=== PATIENT | male | born 1935 | race Caucasian/White ===

== ENCOUNTER 2016-06-04 19:33 | Inpatient (IN) ==
[2016-06-04] MEDS ORDERED: IPRATROPIUM/ALBUTEROL 3 ML AMPUL.NEB NEB ONE (19:39)
[2016-06-04] MEDS ORDERED: 0.9 % SODIUM CHLORIDE 1,000 ML IV ONE ×2 (19:40→21:00)
[2016-06-04] MEDS ORDERED: NALOXONE HCL 0.4 MG/ML VIAL IV ONE (19:49)
--- NOTE | 2016-06-04 20:06 | Emergency Department Note ---
[id number] 4d Shortness of breath Time Seen by Provider: 06/04/16 19:37 Source: family, EMS Mode of arrival: EMS Limitations: no limitations - History of Present Illness 80-year-old male with a history of shortness of breath and decreased level consciousness this evening. Was evaluated by his primary care provider yesterday, had a chest x-ray and was diagnosed with pneumonia. He's been treated with Zithromax and IM Rocephin. 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 They did give some Narcan, which helped, but does have a nonrebreather mask and the sats are running at 92-94%. - Related Data Home Medications Medication Instructions Recorded Confirmed Albuterol Sulfate 2.5 mg IH Q4HP PRN 09/11/15 06/05/16 Bisacodyl [Dulcolax] 10 mg MD PRN PRN 09/11/15 06/05/16 Calcium Carbonate [Calcium] 500 mg PO DAILY 09/11/15 06/05/16 Carvedilol [Coreg] 3.125 mg PO BID 09/11/15 06/05/16 Fluticasone Propionate [Flovent 2 puff IH Q12 09/11/15 06/05/16 Diskus] Ipratropium/Albuterol [Duoneb] 3 ml NEB Q6H 09/11/15 06/05/16 Magnesium Hydroxide [Milk of 30 ml PO PRN PRN 09/11/15 06/05/16 Magnesia] Na Phos,M-B/Na Phos,Di-Ba [Fleet 230 ml RC PRN PRN 09/11/15 06/05/16 Enema Extra] Nicotine [Nicoderm] 21 mg TOPICAL DAILY 09/11/15 06/05/16 Omeprazole [PriLOSEC] 20 mg PO BID 09/11/15 06/05/16 Polyethylene Glycol 3350 [Miralax] 17 gm PO BID 09/11/15 06/05/16 Sennosides [Senna] 8.6 mg PO BID 09/11/15 06/05/16 Tuberculin,Purif.prot.deriv. 5 tub ID ONCE 09/11/15 06/05/16 [Tubersol] traMADol [Ultram] 1 tab PO Q4-6HP PRN 09/11/15 06/05/16 Artificial Tears 2 gtt BOTH EYES Q4HP PRN 06/05/16 06/05/16 Cholecalciferol (Vitamin D3) 2,000 unit PO HS 06/05/16 06/05/16 [Vitamin D] Melatonin 5 mg PO PRN PRN 06/05/16 06/05/16 Multivit,Th Iron,Other Min 1 tab PO DAILY 06/05/16 06/05/16 [Thera-M] Potassium Chloride [Klor-Con 10] 10 meq PO DAILY 06/05/16 06/05/16 Tamsulosin HCl 0.4 mg PO DAILY 06/05/16 06/05/16 Thera-Gesic Plus Creme 1 unit DAILY 06/05/16 06/05/16 Torsemide [Demadex] 20 mg PO DAILY 06/05/16 06/05/16 Warfarin [Coumadin] 6 mg PO DAILY 06/05/16 06/05/16 morphine 0.5 ml PO Q2HP PRN 06/05/16 06/05/16 Allergies Allergy/AdvReac Type Severity Reaction Status Date / Time Penicillins Allergy Unknown Verified 09/11/15 18:08 shellfish derived Allergy Unknown Verified 09/11/15 18:08 Review of Systems All systems ED: reviewed and negative except as stated. Constitutional: Reports: fever Eyes: Denies: eye pain ENT ED: Denies: ear pain Cardiovascular: Denies: chest pain Respiratory: Reports: cough, dyspnea Gastrointestinal: Denies: abdominal pain Genitourinary: Denies: urgency, dysuria Musculoskeletal: Denies: back pain Integumentary: Denies: rash Neurological: Denies: headache Psychiatric: Denies: anxiety Endocrine: Denies: fatigue Hematological/Lymphatic: Denies: easy bleeding Past Medical History - Past Medical History Medical history: Reports: COPD, GERD, hypertension, other (ankylosing spondylitis) - Social History smoking status: Former smoker (heavy) Alcohol use: Reports: None Drug use: Reports: none Physical Exam - General Limitations: no limitations General appearance: alert - Head Head exam: atraumatic - ENT ENT exam: normal oropharynx, mucous membranes moist - Neck Neck exam: Present: full ROM, trachea midline - Chest Chest inspection: Present: symmetric chest wall rise - Respiratory Respiratory exam: Absent: stridor - Cardiovascular Cardiovascular exam: Present: regular rate, normal rhythm - Abdominal Exam Abdominal exam: Present: soft. Absent: distention, tenderness - exam: Present: normal inspection. Absent: testicular tenderness - Extremities Exam Extremities exam: Present: normal inspection. Absent: full ROM - Back Exam Back exam: Present: normal inspection. Absent: full ROM, tenderness - Skin Skin exam: Present: warm, dry Course Vital Signs Temperature 100.6 F H 06/04/16 19:33 Pulse Rate 114 H 06/04/16 19:33 Respiratory Rate 16 06/04/16 19:33 Blood Pressure 154/79 06/04/16 19:33 Pulse Oximetry (%) 90 06/04/16 19:33 Temperature 98.3 F 06/10/16 20:00 Pulse Rate 88 06/10/16 18:02 Respiratory Rate 24 06/10/16 22:00 Blood Pressure 117/73 06/10/16 22:00 Pulse Oximetry (%) 92 06/10/16 22:00 Shortness of Breath/Dyspnea - Lab Data Result diagrams: 06/10/16 03:50 06/10/16 03:50 Lab Results 06/04/16 06/04/16 06/04/16 Range/Units 00:00 00:00 00:00 WBC (4.5-11.0) K/mcL RBC (4.50-5.90) M/mcL Hgb (13.5-16.5) g/dL Hct (41.0-55.0) % MCV (80.0-100.0) fL MCH (26.0-34.0) pg MCHC (31.0-36.0) g/dL RDW (11.5-14.5) % Plt Count (140-440) K/mcL MPV (7.4-10.4) fL Total Counted Seg Neutrophils % (38-78) % Band Neutrophils % (0-10) % Lymphocytes % (15-49) % Monocytes % (Manual) (1-9) % Metamyelocytes % (0-0) % Reactive Lymphocytes (0-2) % Platelet Estimate (NORMAL) RBC Morphology (NORMAL) PT 28.0 H (11.9-14.5) sec INR 2.5 H (0.9-1.1) D-Dimer < 0.27 (0.00-0.40) ug/ml VBG Lactic Acid (0.5-2.2) mmol/L Sodium (133-145) mmol/L Potassium (3.3-5.1) mmol/L Chloride (96-108) mmol/L Carbon Dioxide (22-30) mmol/L Anion Gap (8-16) BUN (8-23) mg/dl Creatinine (0.7-1.2) mg/dl GFR Calculation Glucose (70-105) mg/dL Calcium (8.6-10.4) mg/dl Total Bilirubin (0.0-1.0) mg/dL AST (0-37) U/l ALT (0-40) U/l Alkaline Phosphatase (39-117) U/L Troponin T < 0.01 (0-0.03) ng/ml NT-Pro-B Natriuret Pep 3461.0 H (0-450) pg/ml Total Protein (5.9-8.4) gm/dL Albumin (3.2-5.2) gm/dL Globulin (2.2-3.7) gm/dL Albumin/Globulin Ratio (1.0-2.3) Urine Color Urine Appearance Urine pH (5.0-9.0) Ur Specific Clayton (1.000-1.035) Urine Protein (NEG) mg/dL Urine Glucose (UA) (NEG) mg/dL Urine Ketones (NEG) mg/dL Urine Occult Blood (<0.03) mg/dL Urine Nitrate (NEG) Urine Bilirubin (NEG) mg/dL Urine Urobilinogen (NEG) mg/dL Ur Leukocyte Esterase (NEG) /uL Urine RBC (0-1) /hpf Urine WBC (0-4) /hpf Ur Squamous Epith Cells (0-4) /hpf Ur Transition Epith Cell (0-2) /hpf Amorphous Crystals (0) /hpf Urine Bacteria (0) /hpf Hyaline Casts (0-2) /lpf Urine Mucus (0) /hpf Ur Culture Indicated? 06/04/16 06/04/16 06/04/16 Range/Units 20:00 20:00 20:00 WBC 9.5 (4.5-11.0) K/mcL RBC 4.90 (4.50-5.90) M/mcL Hgb 14.9 (13.5-16.5) g/dL Hct 46.8 (41.0-55.0) % MCV 95.5 (80.0-100.0) fL MCH 30.5 (26.0-34.0) pg MCHC 31.9 (31.0-36.0) g/dL RDW 13.8 (11.5-14.5) % Plt Count 212 (140-440) K/mcL MPV 7.6 (7.4-10.4) fL Total Counted 100 Seg Neutrophils % 74 (38-78) % Band Neutrophils % 6 (0-10) % Lymphocytes % 5 L (15-49) % Monocytes % (Manual) 12 H (1-9) % Metamyelocytes % 1 H (0-0) % Reactive Lymphocytes 2 (0-2) % Platelet Estimate Normal (NORMAL) RBC Morphology Normal (NORMAL) PT (11.9-14.5) sec INR (0.9-1.1) D-Dimer (0.00-0.40) ug/ml VBG Lactic Acid 1.0 (0.5-2.2) mmol/L Sodium 136 (133-145) mmol/L Potassium 4.4 (3.3-5.1) mmol/L Chloride 89 L (96-108) mmol/L Carbon Dioxide 35 H (22-30) mmol/L Anion Gap 12.0 (8-16) BUN 19 (8-23) mg/dl Creatinine 1.0 (0.7-1.2) mg/dl GFR Calculation 71 Glucose 129 H (70-105) mg/dL Calcium 8.6 (8.6-10.4) mg/dl Total Bilirubin 0.3 (0.0-1.0) mg/dL AST 21 (0-37) U/l ALT 18 (0-40) U/l Alkaline Phosphatase 106 (39-117) U/L Troponin T (0-0.03) ng/ml NT-Pro-B Natriuret Pep (0-450) pg/ml Total Protein 7.6 (5.9-8.4) gm/dL Albumin 4.1 (3.2-5.2) gm/dL Globulin 3.5 (2.2-3.7) gm/dL Albumin/Globulin Ratio 1.2 (1.0-2.3) Urine Color Urine Appearance Urine pH (5.0-9.0) Ur Specific Clayton (1.000-1.035) Urine Protein (NEG) mg/dL Urine Glucose (UA) (NEG) mg/dL Urine Ketones (NEG) mg/dL Urine Occult Blood (<0.03) mg/dL Urine Nitrate (NEG) Urine Bilirubin (NEG) mg/dL Urine Urobilinogen (NEG) mg/dL Ur Leukocyte Esterase (NEG) /uL Urine RBC (0-1) /hpf Urine WBC (0-4) /hpf Ur Squamous Epith Cells (0-4) /hpf Ur Transition Epith Cell (0-2) /hpf Amorphous Crystals (0) /hpf Urine Bacteria (0) /hpf Hyaline Casts (0-2) /lpf Urine Mucus (0) /hpf Ur Culture Indicated? 06/04/16 Range/Units 21:17 WBC (4.5-11.0) K/mcL RBC (4.50-5.90) M/mcL Hgb (13.5-16.5) g/dL Hct (41.0-55.0) % MCV (80.0-100.0) fL MCH (26.0-34.0) pg MCHC (31.0-36.0) g/dL RDW (11.5-14.5) % Plt Count (140-440) K/mcL MPV (7.4-10.4) fL Total Counted Seg Neutrophils % (38-78) % Band Neutrophils % (0-10) % Lymphocytes % (15-49) % Monocytes % (Manual) (1-9) % Metamyelocytes % (0-0) % Reactive Lymphocytes (0-2) % Platelet Estimate (NORMAL) RBC Morphology (NORMAL) PT (11.9-14.5) sec INR (0.9-1.1) D-Dimer (0.00-0.40) ug/ml VBG Lactic Acid (0.5-2.2) mmol/L Sodium (133-145) mmol/L Potassium (3.3-5.1) mmol/L Chloride (96-108) mmol/L Carbon Dioxide (22-30) mmol/L Anion Gap (8-16) BUN (8-23) mg/dl Creatinine (0.7-1.2) mg/dl GFR Calculation Glucose (70-105) mg/dL Calcium (8.6-10.4) mg/dl Total Bilirubin (0.0-1.0) mg/dL AST (0-37) U/l ALT (0-40) U/l Alkaline Phosphatase (39-117) U/L Troponin T (0-0.03) ng/ml NT-Pro-B Natriuret Pep (0-450) pg/ml Total Protein (5.9-8.4) gm/dL Albumin (3.2-5.2) gm/dL Globulin (2.2-3.7) gm/dL Albumin/Globulin Ratio (1.0-2.3) Urine Color Straw Urine Appearance Hazy Urine pH 5.0 (5.0-9.0) Ur Specific [place] 1.009 (1.000-1.035) Urine Protein Neg (NEG) mg/dL Urine Glucose (UA) Negative (NEG) mg/dL Urine Ketones Neg (NEG) mg/dL Urine Occult Blood 0.03 A (<0.03) mg/dL Urine Nitrate Neg (NEG) Urine Bilirubin Neg (NEG) mg/dL Urine Urobilinogen Neg (NEG) mg/dL Ur Leukocyte Esterase Neg (NEG) /uL Urine RBC 1 (0-1) /hpf Urine WBC 4 (0-4) /hpf Ur Squamous Epith Cells < 1 (0-4) /hpf Ur Transition Epith Cell < 1 (0-2) /hpf Amorphous Crystals Few A (0) /hpf Urine Bacteria 0 (0) /hpf Hyaline Casts 17 H (0-2) /lpf Urine Mucus Few (0) /hpf Ur Culture Indicated? No Disposition Clinical Impression: Pneumonia Clinical Impression: (Ruled Out): Pleural effusion Disposition: Xfer As Inpt ([facility])
[2016-06-04] MEDS ORDERED: LEVOFLOXACIN 500 MG/100 ML BAG IV ONE (20:09)
[2016-06-04] MEDS ORDERED: cefTRIAXone 1 GM in DEXTROSE 5% IN WATER 50 ML IV ONE (20:09)
[2016-06-04] MEDS ORDERED: cefTRIAXone 1 GM VIAL ONE (20:43)
[2016-06-04 20:51] LABS: Mean Cell Volume 95.5 fL (80.0-100.0); Mean Corpuscular HGB Conc 31.9 g/dL (31.0-36.0); Mean Corpuscular Hemoglobin 30.5 pg (26.0-34.0); Platelet Count 212 K/mcL (140-440); Red Cell Distribution Width 13.8 % (11.5-14.5)
[2016-06-04 21:07] LABS: ALT/SGPT 18 U/l (0-40); Albumin 4.1 gm/dL (3.2-5.2); Albumin/Globulin Ratio 1.2 (1.0-2.3); Alkaline Phosphatase 106 U/L (39-117); Blood Urea Nitrogen 19 mg/dl (8-23)
[2016-06-04 21:15] LABS: Band Neutrophils % 6 % (0-10); Lymphocytes % 5 % (15-49); Metamyelocytes % 1 % (0-0); Monocytes % (Manual) 12 % (1-9); Platelet Estimate NORMAL (NORMAL); RBC Morphology NORMAL (NORMAL); Segmented Neutrophils % 74 % (38-78)
[2016-06-04 22:55] LABS: Appearance,Urine HAZY; Bacteria,Urine 0 /hpf (0); Bilirubin,Urine NEG (NEG); Color,Urine STRAW; Glucose,Urine (UA) NEGATIVE (NEG); Leukocyte Esterase,Urine NEG /uL (NEG); Mucus,Urine FEW /hpf (0); Nitrate,Urine NEG (NEG); Protein,Urine NEG (NEG); Specific Gravity,Urine 1.009 (1.000-1.035); Urine Amorphous Crystals FEW /hpf (0); Urine Blood 0.03 mg/dL (<0.03); Urine Hyaline Cast 17 /lpf (0-2); Urine RBC 1 /hpf (0-1); Urine Squamous Epithelial Cell < 1 /hpf (0-4); Urine Transitional Epi Cells < 1 /hpf (0-2); Urine WBC 4 /hpf (0-4); Urobilinogen,Urine NEG (NEG)
--- NOTE | 2016-06-04 23:11 | Internal Med History&Physical ---
Medical - H&P: HPI Patient information: Note initiated : 06/04/16 at 11:11 pm Service Date, if different from initiated Date: [] Patient: Shameka Sy 80 y/o M admitted on for Shortness of breath. Chief Complaint: [] History of present illness: Mr. Sy is a 80 year [facility] male [facility] the [place] [facility] today. He apparently developed rather sudden increase in shortness of breath yesterday morning, and had a chest x-ray suggestive of left lower lobe pneumonia. It looks like he was treated with azithromycin and Rocephin. However according to his sister, he continued to get more short of breath over the course of the day. He was sent to the emergency room for further evaluation. In the ER he initially had an O2 saturation of 90% on 10 L nasal cannula, and is now requiring about15 L nonrebreather mask to keep his saturations above 92%. His sister is here with him, and so she is his only family. She is aware that he had shortness of breath yesterday and believes he had fever and chills as well as productive cough. She does not believe that he has had recent headaches or dizziness, new eye or Or ear symptoms, sore throat, chest pain or palpitations, abdominal pain, nausea vomiting or diarrhea. She reports she does have chronicconstipation. She is not aware of any bladder complaints. past medical history: (we have not yet received any records from the [place] and history is mostly from the sister.) COPD, with respiratory failure and ventilator management last August. 58 years of tobacco abuse, having quit last year Chronic constipation History of atrial fibrillation Possible history of congestive heart failure medications: appear to include: Tramadol 1 tab every 4 hours when necessary [place] 18 g daily MiraLAX 17 g twice a day Prilosec 20 mg twice a day Fleets enema when necessary we'll continue to when necessary Duo nebs every 6 hours Flovent discus 2 puffs every 12 hours Coreg 3.125 mg twice a day Calcium 500 mg daily Bisacodyl 10 mg when necessary Albuterol sulfate 2 puffs every 4 hours when necessary or nebulizer when necessary Rocephin was started yesterday Azithromycin was started yesterday allergies: Include penicillin and shellfish Family history: The patient's sister believes there is a family history of coronary disease. She is unaware of any family history of cancers, stroke, diabetes. Social history: The patient currently lives at the [place] [facility]. He smoked for approximately 58 years, and just quit last year. He does not use alcohol or drugs. He does not have a or children. Medical - H&P: Meds Home Medications Medication Instructions Recorded Confirmed Type Albuterol Sulfate 2.5 mg IH Q4HP PRN 09/11/15 06/05/16 History Bisacodyl [Dulcolax] 10 mg ME PRN PRN 09/11/15 06/05/16 History Calcium Carbonate [Calcium] 500 mg PO DAILY 09/11/15 06/05/16 History Carvedilol [Coreg] 3.125 mg PO BID 09/11/15 06/05/16 History Fluticasone Propionate [Flovent 2 puff IH Q12 09/11/15 06/05/16 History Diskus] Ipratropium/Albuterol [Duoneb] 3 ml NEB Q6H 09/11/15 06/05/16 History Magnesium Hydroxide [Milk of 30 ml PO PRN PRN 09/11/15 06/05/16 History Magnesia] Na Phos,M-B/Na Phos,Di-Ba [Fleet 230 ml RC PRN PRN 09/11/15 06/05/16 History Enema Extra] Nicotine [Nicoderm] 21 mg TOPICAL DAILY 09/11/15 06/05/16 History Omeprazole [PriLOSEC] 20 mg PO BID 09/11/15 06/05/16 History Polyethylene Glycol 3350 [Miralax] 17 gm PO BID 09/11/15 06/05/16 History Sennosides [Senna] 8.6 mg PO BID 09/11/15 06/05/16 History Tuberculin,Purif.prot.deriv. 5 tub ID ONCE 09/11/15 06/05/16 History [Tubersol] traMADol [Ultram] 1 tab PO Q4-6HP PRN 09/11/15 06/05/16 History Artificial Tears 2 gtt BOTH EYES Q4HP PRN 06/05/16 06/05/16 History Cholecalciferol (Vitamin D3) 2,000 unit PO HS 06/05/16 06/05/16 History [Vitamin D] Melatonin 5 mg PO PRN PRN 06/05/16 06/05/16 History Multivit,Th Iron,Other Min 1 tab PO DAILY 06/05/16 06/05/16 History [Thera-M] Potassium Chloride [Klor-Con 10] 10 meq PO DAILY 06/05/16 06/05/16 History Tamsulosin HCl 0.4 mg PO DAILY 06/05/16 06/05/16 History Thera-Gesic Plus Creme 1 unit DAILY 06/05/16 06/05/16 History Torsemide [Demadex] 20 mg PO DAILY 06/05/16 06/05/16 History Warfarin [Coumadin] 6 mg PO DAILY 06/05/16 06/05/16 History morphine 0.5 ml PO Q2HP PRN 06/05/16 06/05/16 History Allergies Allergy/AdvReac Type Severity Reaction Status Date / Time Penicillins Allergy Unknown Verified 09/11/15 18:08 shellfish derived Allergy Unknown Verified 09/11/15 18:08 Medical - H&P: Exam - Constitutional Vitals: Temp Pulse Resp BP Pulse Ox 100.6 F H 125 H 26 H 111/63 94 06/04/16 19:33 06/04/16 22:07 06/04/16 22:00 06/04/16 22:07 06/04/16 22:07 Exam: on exam, the patient is quite obtunded, does not respond to verbal or physical stimulation. The ER M.D. tells me that the patient was somewhat awake on arrival, and seemed more alert after receiving IV Narcan but then became somnolent again. Head: Normocephalic, atraumatic. Ears:TMs and canals are clear. Eyes: The patient does not open his eyeson command. Pupils are about 2 mm and mostly nonreactive. Conjunctiva appear normal. Pharynx; Appears quite dry posterior pharynx is not well seen. neck: Seems somewhatstiff, but the patient is generally unresponsive. There is no obvious JVD, lymphadenopathy, thyromegaly, bruits. Cardiac exam: Shows irregularly irregular rhythm, with normal S1 and S2. No murmurs, rubs, gallops are noted. Lungs: Patient is unable cooperate well with lung exam, but breath sounds are fairly decreased throughout, with scattered crackles at the bases. abdomen is soft , with no signs of rigidity or guarding. No signs or active. Extremities: Feet are cool to the touch, and slightly mottled. There is no significant edema. Neurologic: The patient is quite unresponsive. The ER M.D. he reports he was more responsive earlier after being given Narcan.his sister reports he was fully responsiveyesterday. Medical - H&P: Reslt - Labs CBC & Chem 7: 06/05/16 04:05 06/05/16 04:05 Labs: Short CBC 06/04/16 Range/Units 20:00 WBC 9.5 (4.5-11.0) K/mcL Hgb 14.9 (13.5-16.5) g/dL Hct 46.8 (41.0-55.0) % Plt Count 212 (140-440) K/mcL BMP 06/04/16 20:00 Sodium 136 Potassium 4.4 Chloride 89 L Carbon Dioxide 35 H BUN 19 Creatinine 1.0 Glucose 129 H Calcium 8.6 Liver Function 06/04/16 Range/Units 20:00 Total Bilirubin 0.3 (0.0-1.0) mg/dL AST 21 (0-37) U/l ALT 18 (0-40) U/l Alkaline Phosphatase 106 (39-117) U/L Albumin 4.1 (3.2-5.2) gm/dL Urine 06/04/16 Range/Units 21:17 Urine Color Straw Urine Appearance Hazy Urine pH 5.0 (5.0-9.0) Ur Specific [place] 1.009 (1.000-1.035) Urine Protein Neg (NEG) mg/dL Urine Glucose (UA) Negative (NEG) mg/dL lactic acid is normal at 1.0 chest x-ray has no formal reading yet, but to my eye shows bilateral Chhaya-Hilar infiltrates. urinalysis shows a few hyaline casts, but is otherwise benign Medical - H&P: A/P (1) Pneumonia Current visit: Yes Status: Acute (2) Urine retention Current visit: Yes Status: Acute (3) Atrial fibrillation Current visit: Yes Status: Acute (4) Anticoagulant long-term use Current visit: Yes Status: Acute (5) COPD (chronic obstructive pulmonary disease) Current visit: Yes Status: Acute (6) History of tobacco abuse Current visit: Yes Status: Acute (7) Constipation Current visit: Yes Status: Acute (8) Hyperlipidemia Current visit: Yes Status: Acute - Narrative A/P Narrative: #1. Pulmonary. Patient presents with acute respiratory failure, likely due to left lower lobe pneumonia. However, he really does not have much in the label white blood cell count. He did have a low-grade fever on arrival. this is superimposed on probably significant COPD, for which really have no records at this time. He was intubated for a prolonged period last August. -Admit to ICU for close monitoring -Cover for community-acquired pneumonia withIV Rocephin and Zithromax. If he does not respondquickly consider adding vancomycin for possible healthcare associated pneumonia. -chek d-dimer, BNP, troponin, to rule out other causes. -IV fluids, IV steroids, bronchodilators, oxygen, pulmonary toilet. --check ABG His sister does not think he would want to go on the ventilator again, but would accept BiPAP if needed. #2. Cardiac. -Patient appears to have a history of atrial fibrillation, and is maintained on Coumadin. -chek PT/INR daily and adjust as needed. #3. History of tobacco abuse. Patient quit last year. #4. CODE STATUS: The patient's sister has his POA, and she is requesting a status, although she says they never formally discuss this or put it in writing. #5. DVT prophylaxis: Continue Coumadin. Add SCDs. #6. GI. -Reported chronic constipation. Continue bowel movements. addendum: After patient arrived in the ICU did some further testing. His blood gas came back showing severe respiratory acidosis, severe hypercarbia with significant base excess. We initially tried decreasingFiO2 to see if that would drop the CO2, but follow-up gas did not look much better. The patient was then started on BiPAP, which she seems to be tolerating. This visit took approximately 75 minutes so far, to review the patient's case with the ER Daja, obtain history from the patient's sister, examined the patient , writing orders
[2016-06-04] MEDS ORDERED: ACETAMINOPHEN 325 MG TABLET PO PRN (23:46)
[2016-06-04] MEDS ORDERED: cefTRIAXone 1 GM in DEXTROSE 5% IN WATER 50 ML IV SCH (23:46)
[2016-06-04] MEDS ORDERED: MAGNESIUM HYDROXIDE 30 ML ORAL.SUSP PO PRN (23:46)
[2016-06-04] MEDS ORDERED: ONDANSETRON 4 MG/2 ML VIAL IV PRN (23:46)
[2016-06-04] MEDS ORDERED: NALOXONE HCL 0.4 MG/ML VIAL IV PRN (23:46)
[2016-06-04] MEDS ORDERED: POTASSIUM CHLORIDE 20 MEQ in DEXTROSE 5%-1/2NS 1,000 ML IV SCH (23:46)
[2016-06-04] MEDS ORDERED: LORazepam 2 MG/ML VIAL IV PRN (23:46)
[2016-06-04] MEDS ORDERED: ALBUTEROL SULFATE 2.5 MG/3 ML NEBULIZER NEB PRN (23:46)
[2016-06-05] MEDS: AZITHROMYCIN 500 MG in DEXTROSE 5% IN WATER 250 ML IV SCH ×2 (00:03→15:23)
[2016-06-05 01:19] LABS: D-Dimer < 0.27 ug/ml (0.00-0.40)
[2016-06-05] MEDS: IPRATROPIUM/ALBUTEROL 3 ML AMPUL.NEB NEB SCH ×4 (03:37→19:03)
[2016-06-05] MEDS: 0.9 % SODIUM CHLORIDE 10 ML SYRINGE IV SCH ×3 (05:33→20:49)
--- NOTE | 2016-06-05 06:16 | XRay Report ---
CLINICAL INFORMATION: Hypoxia TECHNIQUE: AP semiupright portable chest x-ray COMPARISON: None. FINDINGS: Probable pulmonary congestion. No definite pulmonary edema. No focal infiltrate. No pulmonary parenchymal mass. Upright PA and lateral chest x-ray would the helpful when clinically appropriate. Mild cardiomegaly. IMPRESSION: 1. Mild cardiomegaly. Probable pulmonary congestion without pulmonary edema. 2. No focal infiltrate. Interpreted and Authenticated by: Jese Badillo 06/05/16
[2016-06-05 06:54] LABS: Basophils # (Auto) 0 K/mcL (0.0-0.3); Basophils % (Auto) 0.1 % (0.0-2.0); Eosinophils # (Auto) 0 K/mcL (0.0-0.7); Eosinophils % (Auto) 0 % (0.0-7.0); Granulocytes % (Auto) 80.6 % (38.0-78.0); Lymphocytes # (Auto) 0.6 K/mcL (1.5-4.8); Lymphocytes % (Auto) 5.6 % (15.5-49.0); Mean Cell Volume 96.1 fL (80.0-100.0); Mean Corpuscular Hemoglobin 30.7 pg (26.0-34.0); Monocytes # (Auto) 1.4 K/mcL (0.1-0.9); Monocytes % (Auto) 13.7 % (1.0-9.0); Platelet Count 179 K/mcL (140-440); Red Cell Distribution Width 13.8 % (11.5-14.5)
[2016-06-05] MEDS ORDERED: DEXTROSE 5%-1/2NS W/20MEQ KCL 1,000 ML IV SCH (07:00)
[2016-06-05 07:59] LABS: ALT/SGPT 16 U/l (0-40); Albumin 3.9 gm/dL (3.2-5.2); Albumin/Globulin Ratio 1.6 (1.0-2.3); Alkaline Phosphatase 93 U/L (39-117); Bilirubin,Direct < 0.2 mg/dL (0.0-0.3); Blood Urea Nitrogen 20 mg/dl (8-23); Gamma Glutamyl Transpeptidase 19 U/L (8-61); Magnesium 2.2 mg/dL (1.6-2.5); Uric Acid 7.5 mg/dL (2.5-8.0)
[2016-06-05] MEDS ORDERED: ENOXAPARIN 40 MG/0.4 ML SYRINGE SQ SCH (09:00)
[2016-06-05] MEDS: PANTOPRAZOLE 40 MG VIAL IV SCH (09:20)
--- NOTE | 2016-06-05 11:10 | Internal Med Progress Note ---
Medical - PN: Subj Patient information: Note initiated : 06/05/16 at 11:10 am Service Date, if different from initiated Date: [] Patient: Shameka Sy 80 y/o M admitted on 06/04/16 for Shortness of breath. Chief Complaint: [] Interval history: June 04, 2016: History of present illness: Mr. Sy is a 80 [facility] today. He apparently developed rather sudden increase in shortness of breath yesterday morning, and had a chest x-ray suggestive of left lower lobe pneumonia. It looks like he was treated with azithromycin and Rocephin. However according to his sister, he continued to get more short of breath over the course of the day. He was sent to the emergency room for further evaluation. In the ER he initially had an O2 saturation of 90% on 10 L nasal cannula, and is now requiring about15 L nonrebreather mask to keep his saturations above 92%. His sister is here with him, and so she is his only family. She is aware that he had shortness of breath yesterday and believes he had fever and chills as well as productive cough. She does not believe that he has had recent headaches or dizziness, new eye or Or ear symptoms, sore throat, chest pain or palpitations, abdominal pain, nausea vomiting or diarrhea. She reports she does have chronicconstipation. She is not aware of any bladder complaints. June 05, 2016: the patient did remain on BiPAP for the rest of the night and morning. ABG definitely looks better, although not normal, on the BiPAP. The patient is a little more responsive this morning. He does open his eyes,and appears to say yes and no in response to simple questions. his sister is here again this morning,and is rethinking her brother's CODE STATUS. He never did put anything in writing, so she is now thinking that is going on a ventilator for a few days might get him over whatever respiratory failure he's having at the moment then she would consider giving us the okay to do that. She reiterates that he and she never had a steven discussion about this issue. he patient seems indicated that he is not having any pain. He seems to deny chest pain or abdominal pain, and seems to understand that the BiPAP mask is helping him to breathe. We did receive a few more records from the [place] this morning: past medical history: COPD, with respiratory failure and ventilator management last August. previously oxygen dependent, but no longer. 58 years of tobacco abuse, having quit last year Chronic constipation History of atrial fibrillation Hypertension Possible history of congestive heart failure Hyperlipidemia History of upper GI bleed complicated by warfarin therapy, cute myocardial syndrome, and ARDS, August 2015. - Constitutional Vitals: Vital Signs Temp Pulse Resp BP Pulse Ox 98.0 F 103 H 16 122/75 91 06/05/16 07:49 06/05/16 10:51 06/05/16 10:51 06/05/16 10:00 06/05/16 10:51 Period Temp Pulse Resp BP Sys/Charles Pulse Ox Last 24 Hr 98.0 F-98.6 F 83-106 14- 90-123/59-80 86-97 Intake and Output 06/04/16 06/05/16 06/05/16 21:59 05:59 13:59 Intake Total 1250 / 1350 Output Total 1175 / 1175 Balance 75 / 175 Intake & Output: Intake & Output 06/04/16 06/05/16 06/05/16 21:59 05:59 13:59 Intake Total 1250 / 1350 Output Total 1175 / 1175 Balance 75 / 175 Intake: IV 1250 / 1250 Sodium Chloride 0.9% 1, 1000 / 1000 000 ml @ Wide Open IV BOLUS ONE Rx#:[id number] Dextrose 5% in Water 250 250 / 250 ml @ 250 mls/hr IV Q24H KIRA with Zithromax 500 mg Rx#:[id number] Output: Urine Catheter Amount 1175 / 1175 Exam: On exam, e mostly sleeps, but isable to arouse to voice this morning. He is able to say yes and no. He follows some commands. His sister notes that he occasionallyseems to reach up to try to grabhis mask, but does not actually recheck. Neck is supple without obvious lymphadenopathy or JVD. Cardiac exam shows an irregularly irregular rhythm. Lung exam reath sounds are decreased, there are scattered crackles.I do not hear significant wheezing. Abdomen: Is soft, and appears nontender. Bowel sounds are active. Extremities:show no significant edema. Neurologic exam: Mental status appears to be improving a bit, probably due to the drop in his CO2 level. Motor exam appears nonfocal. Medical - PN: Obj Da - Labs CBC & Chem 7: 06/05/16 04:05 06/05/16 04:05 Labs: Abnormal Lab Results 06/05/16 06/05/16 06/05/16 04:05 04:05 04:05 RBC 4.40 L Gran % 80.6 H Lymph % (Auto) 5.6 L Hays % (Auto) 13.7 H Gran # 8.4 H Lymph # 0.6 L Hays # 1.4 H PT 30.6 H INR 2.8 H Chloride 93 L Glucose 150 H Calcium 8.1 L Phosphorus 5.0 H 06/04: BNP is elevated at 3460; Troponin T is less than 0.01 eKG from last night shows atrial fibrillation at a rate of 115, right axis deviation, possible right ventricular hypertrophy, nonspecific ST-T changes. 06/04:aBG done at 07 100 this morning, on BiPAP with settings of 14/8, FiO2 of 35 %: Shows pH of 7.25, PCO2 of 93, PO2 of 48, bicarbonate of 40, 91% saturation 06/04:aBG at 01 50 this morning, shows pH of 7.10, PCO2 of 132, PO2 of 58 bicarbonate of 41, O2 saturation of 78% on a 3 L OxiMax. lactic acid is normal at 1.0 chest x-ray , 06/04:probable pulmonary congestion without definite edema. No focal infiltrate or mass. Mild cardiomegaly.. urinalysis shows a few hyaline casts, but is otherwise benign Meds: Medications Acetaminophen (Tylenol) 650 mg PO Q4-6HP PRN PRN Reason: PAIN/FEVER > 101 Albuterol Sulfate (Ventolin) 2.5 mg NEB Q2HP PRN PRN Reason: Shortness Of Breath Or Wheezing Albuterol/Ipratropium (Duoneb) 3 ml NEB Q6HRT [facility] Last Admin: 06/05/16 07:23 Dose: 3 ml Docusate Sodium (Colace) 100 mg PO BID PRN PRN Reason: Constipation Azithromycin 500 mg/ Dextrose 250 mls @ 250 mls/hr IV Q24H KIRA Stop: 06/07/16 00:45 Last Infusion: 06/05/16 01:05 Dose: Infused Potassium Chloride/Dextrose/Sod Cl (Dextrose 5%-1/2ns W/20meq Kcl) 1,000 mls @ 100 mls/hr IV Q10H [facility] Last Admin: 06/05/16 09:20 Dose: 100 mls/hr Ceftriaxone Sodium 1 gm/ (Dextrose) 50 mls @ 100 mls/hr IV DAILY [facility] Lorazepam (Ativan) 0.5 mg IV Q2HP PRN PRN Reason: ANXIETY/SEDATION Magnesium Hydroxide (Milk Of Magnesia) 30 ml PO DAILYP PRN PRN Reason: Constipation Morphine Sulfate (Morphine) 1 mg IV Q2HP PRN PRN Reason: Pain Naloxone HCl (Narcan) 0.1 mg IV Q2MIN PRN PRN Reason: Opiate Reversal Last Admin: 06/05/16 00:03 Dose: 0.1 mg Ondansetron HCl (Zofran) 4 mg IV Q4-6HP PRN PRN Reason: Nausea And Vomiting Pantoprazole Sodium (Protonix) 40 mg IV QAMAC [facility] Last Admin: 06/05/16 09:20 Dose: 40 mg Sodium Chloride (Saline Flush) 10 ml IV Q8 [facility] Last Admin: 06/05/16 05:33 Dose: 10 ml Warfarin Sodium (Coumadin) 3 mg PO ONCE@1400 ONE Stop: 06/05/16 14:01 Medical - PN: A/P - Time Spent With Patient Total time spent is greater than 50% in coordination of care (as documented) at patient's floor/unit and/or counseling patient: (1) Pneumonia Status: Acute Current Visit: Yes (2) Urine retention Status: Acute Current Visit: Yes (3) Atrial fibrillation Status: Acute Current Visit: Yes (4) Anticoagulant long-term use Status: Acute Current Visit: Yes (5) COPD (chronic obstructive pulmonary disease) Status: Acute Current Visit: Yes (6) History of tobacco abuse Status: Acute Current Visit: Yes (7) Constipation Status: Acute Current Visit: Yes (8) Hyperlipidemia Status: Acute Current Visit: Yes - Narrative A/P Narrative: #1. Pulmonary. -this patient presented with signs and symptoms of pneumonia yesterday,but formal reading on the chest x-ray does not show definite pneumonia, and does show mild pulmonary vascular congestion. his acute respiratory failure could also be due to end-stage COPD with acute exacerbation with or without superimposed infection and/or congestive heart failure. -given his very tenuous condition, I will continue with him. IV antibiotics just in case. We will also try a dose of Lasix to see if diuresing seems to help with the hypoxia. For now, we'll continue with BiPAP to improve ventilation. -Recheck an ABG this afternoon, and if the patient is getting worse, his sister is open to considering and later management for a short time. We need to get a follow-up echocardiogram as well, as [facility] and do not give me much of a picture of his cardiac status. -he should be at low risk for PE, given he is therapeutic on Coumadin. D-dimer was also normal at less than 0.27 -IV fluids, IV steroids, bronchodilators, oxygen, pulmonary toilet. #2. Cardiac. -vA records indicate possible cardiac history as well. Check an echocardiogram to rule out overt systolic CHF. -Patient appears to have a history of atrial fibrillation, and is maintained on Coumadin. -check PT/INR daily and adjust as needed.he is in therapeutic range today. #3. History of tobacco abuse. Patient quit last year. #4. CODE STATUS: The patient's sister has his POA, and she is requesting, Limited CODE STATUS, although she is waffling bit this morning, and thinks she might accept short-term ventilator management. The patient's mental status is improving, so at some point he may be able o give consent either way as well. #5. DVT prophylaxis: Continue Coumadin. Add SCDs. #6. GI. -Reported chronic constipation. Continue bowel movements .-Reported history of significant GI bleed last August. Continue IV Protonix. Monitor hemoglobin levels. So far today, this is his taken approximately 35 minutes, to review test results , review plan of care with nursing staff, interview and exam and the patient, and discuss things with his sister, and write orders. Medical - PN: Qual - VTE Deep Vein Thrombosis/Pulmonary Embolism Present on Admission: No
[2016-06-05] MEDS ORDERED: FUROSEMIDE 40 MG/4 ML VIAL IV ONE (11:41)
[2016-06-05] MEDS: DEXTROSE 5%-1/2NS W/20MEQ KCL 1,000 ML IV SCH ×2 (11:57→20:30)
[2016-06-05] MEDS ORDERED: WARFARIN 3 MG TABLET PO ONE (14:00)
[2016-06-05] MEDS: cefTRIAXone 1 GM in DEXTROSE 5% IN WATER 50 ML IV SCH (15:43)
[2016-06-05] MEDS ORDERED: BISACODYL 10 MG SUPP.RECT PR PRN (18:10)
[2016-06-05] MEDS ORDERED: METOPROLOL TARTRATE 5 MG/5 ML VIAL IV ONE ×3 (18:35→20:16)
[2016-06-05] MEDS: methylPREDNISolone SOD SUCC 125 MG/2 ML VIAL IV SCH (20:48)
[2016-06-05] MEDS: FUROSEMIDE 20 MG/2 ML VIAL IV SCH (20:48)
[2016-06-05] MEDS: METOPROLOL TARTRATE 5 MG/5 ML VIAL IV PRN (22:42)
[2016-06-06] MEDS: IPRATROPIUM/ALBUTEROL 3 ML AMPUL.NEB NEB SCH ×4 (01:26→19:25)
[2016-06-06] MEDS: 0.9 % SODIUM CHLORIDE 10 ML SYRINGE IV SCH ×3 (04:16→21:12)
[2016-06-06] MEDS: METOPROLOL TARTRATE 5 MG/5 ML VIAL IV PRN ×2 (04:16→09:45)
--- NOTE | 2016-06-06 07:06 | Echocardiogram Report ---
ECHOCARDIOGRAM: 2-D and M-mode echocardiography with cardiac Doppler and color flow imaging were performed with a [id number] Aplio MX. Indication is acute respiratory failure. Both atria appeared mildly enlarged. RV and LV cavity size appeared normal as did LV wall thickness and systolic performance. Estimated ejection fraction is 60%. Aortic root diameter appeared normal. The root appeared sclerotic. The aortic valve appeared trileaflet. Moderate leaflet calcification was present. Valve opening appeared adequate and maximal instantaneous aortic outflow systolic velocity was high normal at 1.8 m/sec. Aortic regurgitation, probably moderate (2+), was demonstrated. The mitral and tricuspid valves appeared unremarkable. Mitral annular calcification was present. Doppler interrogation of LV inflow disclosed a monophasic spectral dispersion pattern related absent AV synchrony. No more than trivial mitral regurgitation was noted. Pulmonary venous interrogation disclose absent \\"a\\" wave, again not related to absent AV synchrony. Pulmonary artery acceleration time appeared normal. There was no evidence for pulmonic stenosis. Pulmonic regurgitation, probably trivial, was noted. There was no evidence for tricuspid regurgitation. No intracardiac shunting was appreciated. There was no evidence for pericardial effusion. The IVC was dilated and did not vary with the respiratory cycle suggesting raise CVP. PA systolic could not be calculated due to absent tricuspid regurgitation jet. Atrial fibrillation with a rapid response was present. CONCLUSION: Aortic root sclerosis. Moderate aortic leaflet calcification with adequate valve opening and aortic regurgitation, probably moderate (2+). Mitral annular calcification. Mild LA enlargement/elevated pulmonary wedge pressure. Mild RA enlargement/raised CVP. (See accompanying M-mode and Doppler reports for quantitation.) ECHOCARDIOGRAPHY M-MODE CALCULATIONS: HT: 5'10 WT: 181 BSA: 20 NORMALS AORTA: AORTIC ROOT 3.0 2.0-3.7 cm LEFT ATRIUM 3.0 1.9-4.0 cm MITRAL VALVE: EXCURSION 2.2 1.9-2.7 cm EPSS 0.1 <0.5 cm LT VENTRICLE: LVID (ED) 4.2 3.5-5.7 cm LVID (ES) 2.8 SEPTAL THICKNESS 1.2 0.6-1.1 cm SEPTAL EXCURSION 0.7 0.3-0.8 cm LVPW THICKNESS 1.2 0.6-1.1 cm LVPW EXCURSION 1.1 0.9-1.4 cm MINOR AXIS FS 3.3 25%-40% RT VENTRICLE: RVID (ED) 1.4 0.9-2.6 cm(up to 3cm if LLD) QUALITATIVE DOPPLER FLOW STUDIES MITRAL VALVE MR, probably trivial AORTIC VALVE AR, probably moderate (2+) TRICUSPID VALVE -- PULMONIC VALVE CO, probably trivial QUANTITATIVE DOPPLER FLOW STUDIES SAMPLE SITES VELOCITIES PEAK PRESSURE VALVE AREA and/or VALVE WINDOW (PEAK,M/SEC) DROP (GRADIENT) PRESSURE HALF-TIME MV (Diastole) 1.1 -- -- MV (Systole) 3.0 -- -- AO (Diastole) 3.8 -- -- AO (Systole) 1.8 -- -- TV (Systole) -- -- -- PV (Systole) 0.8 -- -- PV (Diastole) 1.0 VILMAG:crystal Job ID: [id number] Doc ID: [id number] Vikash Young MD
[2016-06-06 07:12] LABS: Basophils # (Auto) 0 K/mcL (0.0-0.3); Basophils % (Auto) 0.3 % (0.0-2.0); Eosinophils # (Auto) 0 K/mcL (0.0-0.7); Eosinophils % (Auto) 0 % (0.0-7.0); Lymphocytes # (Auto) 0.5 K/mcL (1.5-4.8); Lymphocytes % (Auto) 5.1 % (15.5-49.0); Mean Cell Volume 95.8 fL (80.0-100.0); Mean Corpuscular HGB Conc 31.9 g/dL (31.0-36.0); Mean Corpuscular Hemoglobin 30.6 pg (26.0-34.0); Monocytes # (Auto) 0.4 K/mcL (0.1-0.9); Monocytes % (Auto) 3.6 % (1.0-9.0); Platelet Count 175 K/mcL (140-440); RBC 4.64 M/mcL (4.50-5.90); Red Cell Distribution Width 13.5 % (11.5-14.5)
[2016-06-06] MEDS: PANTOPRAZOLE 40 MG VIAL IV SCH (07:31)
[2016-06-06 08:29] LABS: ALT/SGPT 15 U/l (0-40); Albumin 3.7 gm/dL (3.2-5.2); Albumin/Globulin Ratio 1.4 (1.0-2.3); Alkaline Phosphatase 86 U/L (39-117); Bilirubin,Direct < 0.2 mg/dL (0.0-0.3); Blood Urea Nitrogen 21 mg/dl (8-23); Gamma Glutamyl Transpeptidase 19 U/L (8-61); Uric Acid 9.1 mg/dL (2.5-8.0)
[2016-06-06] MEDS: DEXTROSE 5%-1/2NS W/20MEQ KCL 1,000 ML IV SCH ×2 (09:20→17:06)
[2016-06-06] MEDS: cefTRIAXone 1 GM in DEXTROSE 5% IN WATER 50 ML IV SCH (09:24)
[2016-06-06] MEDS: methylPREDNISolone SOD SUCC 125 MG/2 ML VIAL IV SCH ×2 (09:25→21:09)
[2016-06-06] MEDS: FUROSEMIDE 20 MG/2 ML VIAL IV SCH ×2 (09:25→21:10)
[2016-06-06] MEDS: CALCIUM CARBONATE 500 MG TAB.CHEW CHEWED SCH (09:43)
[2016-06-06] MEDS: AZITHROMYCIN 500 MG in DEXTROSE 5% IN WATER 250 ML IV SCH (15:57)
[2016-06-06] MEDS ORDERED: MAGNESIUM HYDROXIDE 30 ML ORAL.SUSP PO PRN (17:34)
--- NOTE | 2016-06-06 18:04 | Internal Med Progress Note ---
Medical - PN: Subj Patient information: Note initiated : 06/06/16 at 6:01 pm Service Date, if different from initiated Date: [] Patient: Shamkea Sy 80 y/o M admitted on 06/04/16 for Shortness of Breath/ Pneumonia. Chief Complaint: [] Interval history: June 04, 2016: History of present illness: Mr. Sy is a 80 [facility]. He apparently developed rather sudden increase in shortness of breath yesterday morning, and had a chest x-ray suggestive of left lower lobe pneumonia. It looks like he was treated with azithromycin and Rocephin. However according to his sister, he continued to get more short of breath over the course of the day. He was sent to the emergency room for further evaluation. In the ER he initially had an O2 saturation of 90% on 10 L nasal cannula, and is now requiring about15 L nonrebreather mask to keep his saturations above 92%. His sister is here with him, and so she is his only family. She is aware that he had shortness of breath yesterday and believes he had fever and chills as well as productive cough. She does not believe that he has had recent headaches or dizziness, new eye or Or ear symptoms, sore throat, chest pain or palpitations, abdominal pain, nausea vomiting or diarrhea. She reports she does have chronicconstipation. She is not aware of any bladder complaints. June 05, 2016: the patient did remain on BiPAP for the rest of the night and morning. ABG definitely looks better, although not normal, on the BiPAP. The patient is a little more responsive this morning. He does open his eyes,and appears to say yes and no in response to simple questions. his sister is here again this morning,and is rethinking her brother's CODE STATUS. He never did put anything in writing, so she is now thinking that is going on a ventilator for a few days might get him over whatever respiratory failure he's having at the moment then she would consider giving us the okay to do that. She reiterates that he and she never had a steven discussion about this issue. he patient seems indicated that he is not having any pain. He seems to deny chest pain or abdominal pain, and seems to understand that the BiPAP mask is helping him to breathe. May: this morning, the patient has quite a bit more awake. He is able to answer some questions. This afternoon he underwent a speech evaluation, and they feel he is safe to swallow some meds and a dysphagia 1 diet. he continues to have moderate dyspnea, but does admit that he feels he is getting better. He denies any significant pain, and specifically denies chest painor palpitations,abdominal pain, nausea or vomiting, diarrhea, dysuria. His sister came in again today, to fill out the CODE STATUS paperwork, and decided that while she does not want CPR, they would accept short-term ventilation if that would help him get over an episode of pneumonia or some other limited time diagnosis. - Constitutional Vitals: Vital Signs Temp Pulse Resp BP Pulse Ox 97.4 F L 80 18 124/71 89 L 06/06/16 16:00 06/06/16 17:57 06/06/16 17:57 06/06/16 17:00 06/06/16 17:57 Period Temp Pulse Resp BP Sys/Charles Pulse Ox Last 24 Hr 97.4 F-100.2 F 59-130 18-29 118-163/70-90 87-97 Intake and Output 06/06/16 06/06/16 06/06/16 05:59 13:59 21:59 Intake Total 1300 / 1300 Output Total 1150 / 1150 750 / 750 75 / 75 Balance -1150 / -1150 -750 / -750 1225 / 1225 Weight 170 lb Patient Weight 06/07/16 05:59 Weight 170 lb Intake & Output: Intake & Output 06/06/16 06/06/16 06/06/16 05:59 13:59 21:59 Intake Total 1300 / 1300 Output Total 1150 / 1150 750 / 750 75 / 75 Balance -1150 / -1150 -750 / -750 1225 / 1225 Weight 170 lb Intake: IV 1300 / 1300 Dextrose 5% in Water 250 250 / 250 ml @ 250 mls/hr IV Q24H KIRA with Zithromax 500 mg Rx#:[id number] Dextrose 5%-1/2Ns W/20Meq 1000 / 1000 KCl 1,000 ml @ 50 mls/hr IV Q10H KIRA Rx#: [id number] Dextrose 5% in Water 50 50 / 50 ml @ 100 mls/hr IV DAILY KIRA with Rocephin 1 gm Rx #:[id number] Output: Urine Catheter Amount 1150 / 1150 750 / 750 75 / 75 Exam: On exam, he has his BiPAP off at the moment, and is wearingan oyy- mask. he is able to answer a few questions, and follow commands. neck shows no obvious JVD. Cardiac examshows an irregularly irregular rhythm. Lungs: Show bilateralsoft crackles, with louder crackles and rhonchi at the left base. There are some scattered wheezes, but overall there is improved air movement over yesterday. Abdomen is soft and nontender. Extremities show no significant edema. Neurologic: Level of alertness is improving every day. Motor exam appears grossly nonfocal. Medical - PN: Obj Da - Labs CBC & Chem 7: 06/06/16 04:15 06/06/16 04:15 Labs: Abnormal Lab Results 06/06/16 06/06/16 06/06/16 04:15 04:15 04:15 RBC Gran % 91.0 H Lymph % (Auto) 5.1 L Stan[place] % (Auto) Gran # 9.4 H Lymph # 0.5 L Stanly # PT 33.4 H INR 3.1 H Chloride 88 L Carbon Dioxide 38 H Glucose 151 H Uric Acid 9.1 H Calcium Phosphorus 2.0 L 06/05/16 06/05/16 06/05/16 04:05 04:05 04:05 RBC 4.40 L Gran % 80.6 H Lymph % (Auto) 5.6 L Stan[place] % (Auto) 13.7 H Gran # 8.4 H Lymph # 0.6 L Stan[place] # 1.4 H PT 30.6 H INR 2.8 H Chloride 93 L Carbon Dioxide Glucose 150 H Uric Acid Calcium 8.1 L Phosphorus 5.0 H 06/05: aBG this morning, on BiPAP, settings 14/8, 30% FiO2: PH 7.44, PCO2 78, PO2 51 bicarbonate 53, O2 saturation 92% Patient did receive Lasix yesterday, and is now negative about 1400 mL since arrival. blood cultures are negative so far. echocardiogram done on June 05: Shows bilateral atrial enlargement as well as right and left ventricular enlargement, with LVEF of 60%., Moderate aortic regurgitation elevated pulmonary wedge pressure, elevated CVP. 06/04: BNP is elevated at 3460; Troponin T is less than 0.01 eKG from last night shows atrial fibrillation at a rate of 115, right axis deviation, possible right ventricular hypertrophy, nonspecific ST-T changes. 06/04:aBG done at 07 100 this morning, on BiPAP with settings of 14/8, FiO2 of 35 %: Shows pH of 7.25, PCO2 of 93, PO2 of 48, bicarbonate of 40, 91% saturation 06/04:aBG at 01 50 this morning, shows pH of 7.10, PCO2 of 132, PO2 of 58 bicarbonate of 41, O2 saturation of 78% on a 3 L OxiMax. lactic acid is normal at 1.0 chest x-ray , 06/04:probable pulmonary congestion without definite edema. No focal infiltrate or mass. Mild cardiomegaly.. urinalysis shows a few hyaline casts, but is otherwise benign Meds: Medications Acetaminophen (Tylenol) 650 mg PO Q4-6HP PRN PRN Reason: PAIN/FEVER > 101 Albuterol Sulfate (Ventolin) 2.5 mg NEB Q2HP PRN PRN Reason: Shortness Of Breath Or Wheezing Albuterol/Ipratropium (Duoneb) 3 ml NEB Q6HRT [facility] Last Admin: 06/06/16 13:34 Dose: 3 ml Bisacodyl (Dulcolax) 10 mg AK PRN PRN PRN Reason: Constipation Calcium Carbonate/Glycine (Tums) 500 mg CHEWED DAILY [facility] Last Admin: 06/06/16 09:43 Dose: Not Given Carvedilol (Coreg) 3.125 mg PO BID [facility] Docusate Sodium (Colace) 100 mg PO BID PRN PRN Reason: Constipation Furosemide (Lasix) 20 mg IV Q12 [facility] Last Admin: 06/06/16 09:25 Dose: 20 mg Azithromycin 500 mg/ Dextrose 250 mls @ 250 mls/hr IV Q24H [facility] Stop: 06/07/16 00:45 Last Infusion: 06/06/16 17:07 Dose: Infused Ceftriaxone Sodium 1 gm/ (Dextrose) 50 mls @ 100 mls/hr IV DAILY [facility] Last Infusion: 06/06/16 16:14 Dose: Infused Potassium Chloride/Dextrose/Sod Cl (Dextrose 5%-1/2ns W/20meq Kcl) 1,000 mls @ 50 mls/hr IV Q10H [facility] Last Admin: 06/06/16 17:06 Dose: 50 mls/hr Lorazepam (Ativan) 0.5 mg IV Q2HP PRN PRN Reason: ANXIETY/SEDATION Magnesium Hydroxide (Milk Of Magnesia) 30 ml PO DAILYP PRN PRN Reason: Constipation Magnesium Hydroxide (Milk Of Magnesia) 30 ml PO PRN PRN PRN Reason: Constipation Methylprednisolone Sodium Succinate (Solu-Medrol) 80 mg IV Q12 [facility] Last Admin: 06/06/16 09:25 Dose: 80 mg Metoprolol Tartrate (Lopressor) 5 mg IV Q4HP PRN PRN Reason: Tachyarrhythmias Last Admin: 06/06/16 09:45 Dose: 5 mg Morphine Sulfate (Morphine) 1 mg IV Q2HP PRN PRN Reason: Pain Naloxone HCl (Narcan) 0.1 mg IV Q2MIN PRN PRN Reason: Opiate Reversal Last Admin: 06/05/16 00:03 Dose: 0.1 mg Non-Formulary Medication (Cholecalciferol (Vitamin D3) [Vitamin D3]) 2,000 unit PO HS [facility] Non-Formulary Medication (Melatonin [Melatonin]) 5 mg PO PRN PRN PRN Reason: Insomnia Non-Formulary Medication (Multivit,Th Iron,Other Min [Thera-M]) 1 tab PO DAILY [facility] Non-Formulary Medication (Potassium Chloride [Klor-Con 10]) 10 meq PO DAILY [facility] Non-Formulary Medication (Sennosides [Senna]) 8.6 mg PO BID [facility] Non-Formulary Medication (Tamsulosin Hcl) 0.4 mg PO DAILY [facility] Non-Formulary Medication (Torsemide [Demadex]) 20 mg PO DAILY [facility] Ondansetron HCl (Zofran) 4 mg IV Q4-6HP PRN PRN Reason: Nausea And Vomiting Pantoprazole Sodium (Protonix) 40 mg IV QAMAC [facility] Last Admin: 06/06/16 07:31 Dose: 40 mg Artificial Tears 2 dose BOTH EYES Q4HP PRN PRN Reason: Dry Eyes Polyethylene Glycol (Miralax) 17 gm PO BID [facility] Sodium Chloride (Saline Flush) 10 ml IV Q8 [facility] Last Admin: 06/06/16 15:58 Dose: 10 ml Warfarin Sodium (Coumadin) 6 mg PO DAILY [facility] Medical - PN: A/P - Time Spent With Patient Total time spent is greater than 50% in coordination of care (as documented) at patient's floor/unit and/or counseling patient: (1) Pneumonia Status: Acute Current Visit: Yes (2) Urine retention Status: Acute Current Visit: Yes (3) Atrial fibrillation Status: Acute Current Visit: Yes (4) Anticoagulant long-term use Status: Acute Current Visit: Yes (5) COPD (chronic obstructive pulmonary disease) Status: Acute Current Visit: Yes (6) History of tobacco abuse Status: Acute Current Visit: Yes (7) Constipation Status: Acute Current Visit: Yes (8) Hyperlipidemia Status: Acute Current Visit: Yes - Narrative A/P Narrative: #1. Pulmonary. -this patient presented with signs and symptoms of pneumonia yesterday,but formal reading on the chest x-ray does not show definite pneumonia, and does show mild pulmonary vascular congestion. his acute respiratory failure could also be due to end-stage COPD with acute exacerbation with or without superimposed infection and/or congestive heart failure. -given his very tenuous condition, I will continue with IV ceftriaxone and azithromycin to cover community-acquired pneumonia as well as atypicals, just in case. -he should be at low risk for PE, given he is therapeutic on Coumadin. D-dimer was also normal at less than 0.27 -IV fluids, IV steroids, bronchodilators, oxygen, pulmonary toilet. #2. Cardiac. -vA records indicate possible cardiac history as well. echo suggests four-chamber enlargement, but LVEF is normal. He probably does have some degree of pulmonary hypertension as well. -Patient has a history of atrial fibrillation, and is maintained on Coumadin. i believe pharmacy is managing his warfarin. INR was just a bit elevated today. he did have some issues with rapid heart rate last evening and this morning, for which she was given IV metoprolol. We will try putting him back on his oral Coreg this evening. #3. History of tobacco abuse. Patient quit last year. #4. CODE STATUS: The patient's sister has his POA, and she is requesting, Limited CODE STATUS. today she says she does not want chest compressions or defibrillation,might accept short-term ventilator management if he needed that just to get over a case of pneumonia. #5. DVT prophylaxis: Continue Coumadin. Add SCDs. #6. GI. -Reported chronic constipation. Continue bowel Meds. .-Reported history of significant GI bleed last August. Continue IV Protonix. Monitor hemoglobin levels. his visit took approximately 30 minutes today, to interview and examine the patient, review plan of care with nursing staff, review test results, and write orders. Medical - PN: Qual - VTE Deep Vein Thrombosis/Pulmonary Embolism Present on Admission: No
[2016-06-06] MEDS ORDERED: Melatonin [Melatonin] 5 MG Tablet PO PRN (21:00)
[2016-06-06] MEDS: SENNOSIDES 1 TABLET PO SCH (21:09)
[2016-06-06] MEDS: CARVEDILOL 3.125 MG TABLET PO SCH (21:09)
[2016-06-06] MEDS: POLYETHYLENE GLYCOL 3350 17 GM PACKET PO SCH (21:09)
[2016-06-07] MEDS: IPRATROPIUM/ALBUTEROL 3 ML AMPUL.NEB NEB SCH ×4 (01:25→19:55)
[2016-06-07] MEDS: 0.9 % SODIUM CHLORIDE 10 ML SYRINGE IV SCH ×3 (05:27→22:05)
[2016-06-07] MEDS: DEXTROSE 5%-1/2NS W/20MEQ KCL 1,000 ML IV SCH ×2 (05:29→15:41)
[2016-06-07 06:53] LABS: Basophils # (Auto) 0 K/mcL (0.0-0.3); Basophils % (Auto) 0 % (0.0-2.0); Eosinophils # (Auto) 0 K/mcL (0.0-0.7); Eosinophils % (Auto) 0 % (0.0-7.0); Granulocytes % (Auto) 87.5 % (38.0-78.0); Lymphocytes # (Auto) 0.6 K/mcL (1.5-4.8); Lymphocytes % (Auto) 5.9 % (15.5-49.0); Mean Cell Volume 95.4 fL (80.0-100.0); Mean Corpuscular HGB Conc 32.2 g/dL (31.0-36.0); Mean Corpuscular Hemoglobin 30.7 pg (26.0-34.0); Monocytes # (Auto) 0.6 K/mcL (0.1-0.9); Monocytes % (Auto) 6.6 % (1.0-9.0); Platelet Count 202 K/mcL (140-440); RBC 4.41 M/mcL (4.50-5.90); Red Cell Distribution Width 13.1 % (11.5-14.5)
[2016-06-07] MEDS ORDERED: POTASSIUM CHLORIDE 20 MEQ PACKET PO ONE (07:00)
[2016-06-07] MEDS: PANTOPRAZOLE 40 MG VIAL IV SCH (07:29)
[2016-06-07 07:33] LABS: ALT/SGPT 13 U/l (0-40); Albumin 3.6 gm/dL (3.2-5.2); Albumin/Globulin Ratio 1.6 (1.0-2.3); Alkaline Phosphatase 73 U/L (39-117); Bilirubin,Direct < 0.2 mg/dL (0.0-0.3); Blood Urea Nitrogen 27 mg/dl (8-23); Gamma Glutamyl Transpeptidase 17 U/L (8-61); Magnesium 2.2 mg/dL (1.6-2.5); Phosphorous 2.1 mg/dL (2.7-4.5); Uric Acid 9.1 mg/dL (2.5-8.0)
[2016-06-07] MEDS ORDERED: TORSEMIDE 10 MG TABLET PO SCH (09:00)
[2016-06-07] MEDS ORDERED: WARFARIN 6 MG TABLET PO SCH (09:00)
[2016-06-07] MEDS: methylPREDNISolone SOD SUCC 125 MG/2 ML VIAL IV SCH ×2 (09:26→20:38)
[2016-06-07] MEDS: CARVEDILOL 3.125 MG TABLET PO SCH ×2 (09:27→20:31)
[2016-06-07] MEDS: POTASSIUM CHLORIDE 10 MEQ TABLET PO SCH (09:27)
[2016-06-07] MEDS: CALCIUM CARBONATE 500 MG TAB.CHEW CHEWED SCH (09:27)
[2016-06-07] MEDS: SENNOSIDES 1 TABLET PO SCH ×2 (09:27→20:38)
[2016-06-07] MEDS: MULTIVIT,THER IRON,CA,FA & MIN 1 TABLET PO SCH (09:27)
[2016-06-07] MEDS: TAMSULOSIN 0.4 MG CAPSULE PO SCH (09:27)
[2016-06-07] MEDS: FUROSEMIDE 20 MG/2 ML VIAL IV SCH ×2 (09:28→20:32)
[2016-06-07] MEDS: POLYETHYLENE GLYCOL 3350 17 GM PACKET PO SCH ×2 (09:28→20:31)
[2016-06-07] MEDS: cefTRIAXone 1 GM in DEXTROSE 5% IN WATER 50 ML IV SCH (09:28)
--- NOTE | 2016-06-07 13:50 | Internal Med Progress Note ---
Medical - PN: Subj Patient information: Note initiated : 06/07/16 at 1:49 pm Service Date, if different from initiated Date: [] Patient: Shameka Sy 80 y/o M admitted on 06/04/16 for Shortness of Breath/ Pneumonia. Chief Complaint: [] Interval history: June 04, 2016: History of present illness: Mr. Sy is a 80 [facility]. He apparently developed rather sudden increase in shortness of breath yesterday morning, and had a chest x-ray suggestive of left lower lobe pneumonia. It looks like he was treated with azithromycin and Rocephin. However according to his sister, he continued to get more short of breath over the course of the day. He was sent to the emergency room for further evaluation. In the ER he initially had an O2 saturation of 90% on 10 L nasal cannula, and is now requiring about15 L nonrebreather mask to keep his saturations above 92%. His sister is here with him, and so she is his only family. She is aware that he had shortness of breath yesterday and believes he had fever and chills as well as productive cough. She does not believe that he has had recent headaches or dizziness, new eye or Or ear symptoms, sore throat, chest pain or palpitations, abdominal pain, nausea vomiting or diarrhea. She reports she does have chronic constipation. She is not aware of any bladder complaints. June 05, 2016: the patient did remain on BiPAP for the rest of the night and morning. ABG definitely looks better, although not normal, on the BiPAP. The patient is a little more responsive this morning. He does open his eyes,and appears to say yes and no in response to simple questions. his sister is here again this morning,and is rethinking her brother's CODE STATUS. He never did put anything in writing, so she is now thinking that is going on a ventilator for a few days might get him over whatever respiratory failure he's having at the moment then she would consider giving us the okay to do that. She reiterates that he and she never had a steven discussion about this issue. he patient seems indicated that he is not having any pain. He seems to deny chest pain or abdominal pain, and seems to understand that the BiPAP mask is helping him to breathe. May: this morning, the patient has quite a bit more awake. He is able to answer some questions. This afternoon he underwent a speech evaluation, and they feel he is safe to swallow some meds and a dysphagia 1 diet. he continues to have moderate dyspnea, but does admit that he feels he is getting better. He denies any significant pain, and specifically denies chest painor palpitations,abdominal pain, nausea or vomiting, diarrhea, dysuria. His sister came in again today, to fill out the CODE STATUS paperwork, and decided that while she does not want CPR, they would accept short-term ventilation if that would help him get over an episode of pneumonia or some other limited time diagnosis. June 07: this morning, the patient is looking much better. He is off of the BiPAP, and on oxygen by nasal cannula. He is sitting up in a chair, and says he is feeling much better. Nurses report he ate a very large breakfast.e was taken off his BiPAP mask this morning,and is currently on 3 L nasal cannula. Blood gas on that shows a fairly high pH, with continued elevated CO2 and low O2 , but he does seem to be improving. Otherwise, the patient says he is feeling much better. He denies subjective fever or chills, chest painor palpitations, abdominal pain, nausea or vomiting, diarrhea or constipation.. He does have a Hudson catheter in place, and we think that that might of been placed at the [facility]. The patient could not recall, but nursing notes there suggested that it was placed because of bladder outlet obstruction. - Constitutional Vitals: Vital Signs Temp Pulse Resp BP Pulse Ox 98.3 F 94 H 20 127/92 91 06/07/16 12:00 06/07/16 13:00 06/07/16 13:00 06/07/16 13:00 06/07/16 13:00 Period Temp Pulse Resp BP Sys/Charles Pulse Ox Last 24 Hr 97.4 F-99.3 F 73-97 111-148/64-93 87-97 Intake and Output 06/06/16 06/07/16 06/07/16 21:59 05:59 13:59 Intake Total 1300 / 1300 50 / 50 Output Total 75 / 75 750 / 750 Balance 1225 / 1225 -750 / -750 50 / 50 Weight 161 lb 1.6 oz Intake & Output: Intake & Output 06/06/16 06/07/16 06/07/16 21:59 05:59 13:59 Intake Total 1300 / 1300 50 / 50 Output Total 75 / 75 750 / 750 Balance 1225 / 1225 -750 / -750 50 / 50 Weight 161 lb 1.6 oz Intake: IV 1300 / 1300 50 / 50 Dextrose 5% in Water 250 250 / 250 ml @ 250 mls/hr IV Q24H KIRA with Zithromax 500 mg Rx#:[id number] Dextrose 5%-1/2Ns W/20Meq 1000 / 1000 KCl 1,000 ml @ 50 mls/hr IV Q10H KIRA Rx#: [id number] Dextrose 5% in Water 50 50 / 50 50 / 50 ml @ 100 mls/hr IV DAILY KIRA with Rocephin 1 gm Rx #:[id number] Output: Urine Catheter Amount 75 / 75 750 / 750 Exam: on exam, he is much improved. He is awake and alert, and answering questions appropriately. He is smiling. He is sitting up in a chair. Neck is supple without obvious lymphadenopathy or JVD. Cardiac exam shows irregularly irregular rhythm. Lungs: Show decreased breath sounds throughout, with scattered soft and expiratory wheezes. There is no accessory muscle use. Abdomen: Is soft and nontender. Hudson catheter is draining clear yellow urine. Extremities show no significant edema. Neurologic exam: Mental status is markedly improved. Motor exam is grossly nonfocal. Medical - PN: Obj Da - Labs CBC & Chem 7: 06/07/16 04:03 06/07/16 04:03 Labs: Abnormal Lab Results 06/07/16 06/07/16 06/07/16 04:03 04:03 04:03 RBC 4.41 L Gran % 87.5 H Lymph % (Auto) 5.9 L [place] % (Auto) Gran # 8.1 H Lymph # 0.6 L [place] # PT 35.4 H INR 3.4 H Chloride 88 L Carbon Dioxide 42 H* BUN 27 H Glucose 146 H Uric Acid 9.1 H Calcium 8.4 L Phosphorus 2.1 L Total Protein 5.8 L 06/06/16 06/06/16 06/06/16 04:15 04:15 04:15 RBC Gran % 91.0 H Lymph % (Auto) 5.1 L [place] % (Auto) Gran # 9.4 H Lymph # 0.5 L [place] # PT 33.4 H INR 3.1 H Chloride 88 L Carbon Dioxide 38 H BUN Glucose 151 H Uric Acid 9.1 H Calcium Phosphorus 2.0 L Total Protein 06/05/16 06/05/16 06/05/16 04:05 04:05 04:05 RBC 4.40 L Gran % 80.6 H Lymph % (Auto) 5.6 L [place] % (Auto) 13.7 H Gran # 8.4 H Lymph # 0.6 L [place] # 1.4 H PT 30.6 H INR 2.8 H Chloride 93 L Carbon Dioxide BUN Glucose 150 H Uric Acid Calcium 8.1 L Phosphorus 5.0 H Total Protein 06/06: on 3 L O2: PH 7.53, PCO2 67, PO2 54, bicarbonate 56 O2 saturation 91% 06/05: aBG this morning, on BiPAP, settings 14/8, 30% FiO2: PH 7.44, PCO2 78, PO2 51 bicarbonate 53, O2 saturation 92% Patient did receive Lasix yesterday, and is now negative about 1400 mL since arrival. blood cultures are negative so far. echocardiogram done on June 05: Shows bilateral atrial enlargement as well as right and left ventricular enlargement, with LVEF of 60%., Moderate aortic regurgitation elevated pulmonary wedge pressure, elevated CVP. 06/04: BNP is elevated at 3460; Troponin T is less than 0.01 eKG from last night shows atrial fibrillation at a rate of 115, right axis deviation, possible right ventricular hypertrophy, nonspecific ST-T changes. 06/04:aBG done at 07 100 this morning, on BiPAP with settings of 14/8, FiO2 of 35 %: Shows pH of 7.25, PCO2 of 93, PO2 of 48, bicarbonate of 40, 91% saturation 06/04:aBG at 01 50 this morning, shows pH of 7.10, PCO2 of 132, PO2 of 58 bicarbonate of 41, O2 saturation of 78% on a 3 L OxiMax. lactic acid is normal at 1.0 chest x-ray , 06/04:probable pulmonary congestion without definite edema. No focal infiltrate or mass. Mild cardiomegaly.. urinalysis shows a few hyaline casts, but is otherwise benign Meds: Medications Acetaminophen (Tylenol) 650 mg PO Q4-6HP PRN PRN Reason: PAIN/FEVER > 101 Albuterol Sulfate (Ventolin) 2.5 mg NEB Q2HP PRN PRN Reason: Shortness Of Breath Or Wheezing Albuterol/Ipratropium (Duoneb) 3 ml NEB Q6HRT [facility] Last Admin: 06/07/16 13:31 Dose: 3 ml Bisacodyl (Dulcolax) 10 mg ND PRN PRN PRN Reason: Constipation Calcium Carbonate/Glycine (Tums) 500 mg CHEWED DAILY [facility] Last Admin: 06/07/16 09:27 Dose: 500 mg Carvedilol (Coreg) 3.125 mg PO BID [facility] Last Admin: 06/07/16 09:27 Dose: 3.125 mg Docusate Sodium (Colace) 100 mg PO BID PRN PRN Reason: Constipation Furosemide (Lasix) 20 mg IV Q12 [facility] Last Admin: 06/07/16 09:28 Dose: 20 mg Ceftriaxone Sodium 1 gm/ (Dextrose) 50 mls @ 100 mls/hr IV DAILY [facility] Last Infusion: 06/07/16 13:20 Dose: Infused Potassium Chloride/Dextrose/Sod Cl (Dextrose 5%-1/2ns W/20meq Kcl) 1,000 mls @ 50 mls/hr IV Q10H [facility] Last Admin: 06/07/16 05:29 Dose: Not Given Iron Carb/Multivit/Assembler Final/Folic Acid (Multivitamin W/Minerals) 1 tab PO DAILY [facility] Last Admin: 06/07/16 09:27 Dose: 1 tab Lorazepam (Ativan) 0.5 mg IV Q2HP PRN PRN Reason: ANXIETY/SEDATION Magnesium Hydroxide (Milk Of Magnesia) 30 ml PO DAILYP PRN PRN Reason: Constipation Methylprednisolone Sodium Succinate (Solu-Medrol) 80 mg IV Q12 [facility] Last Admin: 06/07/16 09:26 Dose: 80 mg Metoprolol Tartrate (Lopressor) 5 mg IV Q4HP PRN PRN Reason: Tachyarrhythmias Last Admin: 06/06/16 09:45 Dose: 5 mg Morphine Sulfate (Morphine) 1 mg IV Q2HP PRN PRN Reason: Pain Naloxone HCl (Narcan) 0.1 mg IV Q2MIN PRN PRN Reason: Opiate Reversal Last Admin: 06/05/16 00:03 Dose: 0.1 mg Ondansetron HCl (Zofran) 4 mg IV Q4-6HP PRN PRN Reason: Nausea And Vomiting Pantoprazole Sodium (Protonix) 40 mg IV QAMAC [facility] Last Admin: 06/07/16 07:29 Dose: 40 mg Artificial Tears 2 dose BOTH EYES Q4HP PRN PRN Reason: Dry Eyes Melatonin [Melatonin (] 5 Mg Tablet) 1 dose PO HSP PRN PRN Reason: Insomnia Polyethylene Glycol (Miralax) 17 gm PO BID [facility] Last Admin: 06/07/16 09:28 Dose: 17 gm Potassium Chloride (Kdur) 10 meq PO QAMCC [facility] Last Admin: 06/07/16 09:27 Dose: 10 meq Senna (Senokot) 1 tab PO BID [facility] Last Admin: 06/07/16 09:27 Dose: 1 tab Sodium Chloride (Saline Flush) 10 ml IV Q8 [facility] Last Admin: 06/07/16 05:27 Dose: Not Given Tamsulosin HCl (Flomax) 0.4 mg PO DAILY [facility] Last Admin: 06/07/16 09:27 Dose: 0.4 mg Vitamin D (Vitamin D3) 2,000 unit PO [facility] Medical - PN: A/P - Time Spent With Patient Total time spent is greater than 50% in coordination of care (as documented) at patient's floor/unit and/or counseling patient: (1) Pneumonia Status: Acute Current Visit: Yes (2) Urine retention Status: Acute Current Visit: Yes (3) Atrial fibrillation Status: Acute Current Visit: Yes (4) Anticoagulant long-term use Status: Acute Current Visit: Yes (5) COPD (chronic obstructive pulmonary disease) Status: Acute Current Visit: Yes (6) History of tobacco abuse Status: Acute Current Visit: Yes (7) Constipation Status: Acute Current Visit: Yes (8) Hyperlipidemia Status: Acute Current Visit: Yes - Narrative A/P Narrative: #1. Pulmonary. -this patient presented with signs and symptoms of pneumonia ,but formal reading on the chest x-ray does not show definite pneumonia, and does show mild pulmonary vascular congestion. his acute respiratory failure could also be due to end-stage COPD with acute exacerbation with or without superimposed infection and/or congestive heart failure. -given his very tenuous condition, I will continue with IV ceftriaxone and azithromycin to cover community-acquired pneumonia as well as atypicals, just in case. -he should be at low risk for PE, given he is therapeutic on Coumadin. D-dimer was also normal at less than 0.27,. -IV fluids, IV steroids, bronchodilators, oxygen, pulmonary toilet. -the patient's respiratory status is much improved today. We will continue with oxygen via nasal cannula, as tolerated, and BiPAP when he tires. he is still retaining CO2, but we are not sure of his baseline. #2. Cardiac. -vA records indicate possible cardiac history as well. echo suggests four-chamber enlargement, but LVEF is normal. He probably does have some degree of pulmonary hypertension as well. -Patient has a history of atrial fibrillation, and is maintained on Coumadin. i believe pharmacy is managing his warfarin. INR was just a bit elevated today. heart rate has improved since he resumed his Coreg orally. -INR continues a bit elevated, and this will be managed by pharmacy. #3. History of tobacco abuse. Patient quit last year. #4. CODE STATUS: The patient's sister has his POA, and she is requesting, Limited CODE STATUS. she does not want chest compressions or defibrillation, might accept short-term ventilator management if he needed that just to get over a case of pneumonia. #5. DVT prophylaxis: Continue Coumadin. Add SCDs. #6. GI. -Reported chronic constipation. Continue bowel Meds. .-Reported history of significant GI bleed last August. Continue IV Protonix. Monitor hemoglobin levels. #7. Fluids and nutrition. Phosphorus level is low.calcium is also borderline low. Add Neutra-Phos. -patient is now taking oral nutrition. his visit took approximately 30 minutes today, to interview and examine the patient, review plan of care with nursing staff, review test results, and write orders. Medical - PN: Qual - VTE Deep Vein Thrombosis/Pulmonary Embolism Present on Admission: No
[2016-06-07] MEDS: VITAMIN D3 1,000 UNIT TABLET PO SCH (20:31)
[2016-06-07] MEDS: DOCUSATE SODIUM 100 MG CAPSULE PO PRN (20:32)
[2016-06-07] MEDS: NEUTRA PHOS 1 PACKET PO SCH (22:05)
[2016-06-08] MEDS: IPRATROPIUM/ALBUTEROL 3 ML AMPUL.NEB NEB SCH ×4 (01:14→19:33)
[2016-06-08 05:45] LABS: Basophils # (Auto) 0 K/mcL (0.0-0.3); Basophils % (Auto) 0 % (0.0-2.0); Eosinophils # (Auto) 0 K/mcL (0.0-0.7); Eosinophils % (Auto) 0 % (0.0-7.0); Granulocytes % (Auto) 91.2 % (38.0-78.0); Lymphocytes # (Auto) 0.6 K/mcL (1.5-4.8); Lymphocytes % (Auto) 4.9 % (15.5-49.0); Mean Cell Volume 95.5 fL (80.0-100.0); Mean Corpuscular HGB Conc 31.8 g/dL (31.0-36.0); Mean Corpuscular Hemoglobin 30.4 pg (26.0-34.0); Monocytes # (Auto) 0.5 K/mcL (0.1-0.9); Monocytes % (Auto) 3.9 % (1.0-9.0); Platelet Count 225 K/mcL (140-440); RBC 4.68 M/mcL (4.50-5.90); Red Cell Distribution Width 13.1 % (11.5-14.5)
[2016-06-08 06:41] LABS: ALT/SGPT 17 U/l (0-40); Albumin 3.4 gm/dL (3.2-5.2); Albumin/Globulin Ratio 1.1 (1.0-2.3); Alkaline Phosphatase 69 U/L (39-117); Bilirubin,Direct < 0.2 mg/dL (0.0-0.3); Blood Urea Nitrogen 33 mg/dl (8-23); Gamma Glutamyl Transpeptidase 20 U/L (8-61); Magnesium 2.3 mg/dL (1.6-2.5); Phosphorous 3.5 mg/dL (2.7-4.5); Uric Acid 8.1 mg/dL (2.5-8.0)
[2016-06-08] MEDS: PANTOPRAZOLE 40 MG VIAL IV SCH (07:35)
[2016-06-08] MEDS: 0.9 % SODIUM CHLORIDE 10 ML SYRINGE IV SCH ×3 (07:35→20:45)
[2016-06-08] MEDS: CALCIUM CARBONATE 500 MG TAB.CHEW CHEWED SCH (08:52)
[2016-06-08] MEDS: NEUTRA PHOS 1 PACKET PO SCH ×2 (08:52→20:44)
[2016-06-08] MEDS: MULTIVIT,THER IRON,CA,FA & MIN 1 TABLET PO SCH (08:53)
[2016-06-08] MEDS: cefTRIAXone 1 GM in DEXTROSE 5% IN WATER 50 ML IV SCH (08:53)
[2016-06-08] MEDS: CARVEDILOL 3.125 MG TABLET PO SCH ×3 (08:53→20:32)
[2016-06-08] MEDS: TAMSULOSIN 0.4 MG CAPSULE PO SCH (08:53)
[2016-06-08] MEDS: POTASSIUM CHLORIDE 10 MEQ TABLET PO SCH (08:53)
[2016-06-08] MEDS: FUROSEMIDE 20 MG/2 ML VIAL IV SCH ×2 (08:53→20:44)
[2016-06-08] MEDS: methylPREDNISolone SOD SUCC 125 MG/2 ML VIAL IV SCH ×2 (08:53→20:44)
[2016-06-08] MEDS: SENNOSIDES 1 TABLET PO SCH ×2 (09:00→20:33)
[2016-06-08] MEDS: POLYETHYLENE GLYCOL 3350 17 GM PACKET PO SCH ×2 (09:00→20:33)
[2016-06-08] MEDS ORDERED: POTASSIUM CHLORIDE 40 MEQ in DEXTROSE 5% IN WATER 500 ML IV ONE (10:02)
--- NOTE | 2016-06-08 10:51 | XRay Report ---
CLINICAL INFORMATION: Pneumonia. Dyspnea. TECHNIQUE: AP portable chest x-ray COMPARISON: Previous examination dated 06/04/2016 FINDINGS: Pulmonary vascularity appears improved since previous examination. Upper lobe vessels are not as distended. There is cardiac enlargement which is stable. Interval development of bilateral, bibasilar infiltrates. Findings are consistent with pneumonia. Follow-up radiographs recommended. IMPRESSION: 1. Bibasilar parenchymal infiltrates consistent with pneumonia. 2. Pulmonary vascularity is somewhat improved since previous examination. Interpreted and Authenticated by: Jese Badillo 06/08/16
--- NOTE | 2016-06-08 13:38 | Internal Med Progress Note ---
Medical - PN: Subj Patient information: Note initiated : 06/08/16 at 1:38 pm Service Date, if different from initiated Date: [] Patient: Shameka Sy 80 y/o M admitted on 06/04/16 for Shortness of Breath/ Pneumonia. Chief Complaint: [] Interval history: June 04, 2016: History of present illness: Mr. Sy is a 80 [facility] today. He apparently developed rather sudden increase in shortness of breath yesterday morning, and had a chest x-ray suggestive of left lower lobe pneumonia. It looks like he was treated with azithromycin and Rocephin. However according to his sister, he continued to get more short of breath over the course of the day. He was sent to the emergency room for further evaluation. In the ER he initially had an O2 saturation of 90% on 10 L nasal cannula, and is now requiring about15 L nonrebreather mask to keep his saturations above 92%. His sister is here with him, and so she is his only family. She is aware that he had shortness of breath yesterday and believes he had fever and chills as well as productive cough. She does not believe that he has had recent headaches or dizziness, new eye or Or ear symptoms, sore throat, chest pain or palpitations, abdominal pain, nausea vomiting or diarrhea. She reports she does have chronic constipation. She is not aware of any bladder complaints. June 05, 2016: the patient did remain on BiPAP for the rest of the night and morning. ABG definitely looks better, although not normal, on the BiPAP. The patient is a little more responsive this morning. He does open his eyes,and appears to say yes and no in response to simple questions. his sister is here again this morning,and is rethinking her brother's CODE STATUS. He never did put anything in writing, so she is now thinking that is going on a ventilator for a few days might get him over whatever respiratory failure he's having at the moment then she would consider giving us the okay to do that. She reiterates that he and she never had a steven discussion about this issue. he patient seems indicated that he is not having any pain. He seems to deny chest pain or abdominal pain, and seems to understand that the BiPAP mask is helping him to breathe. May: this morning, the patient has quite a bit more awake. He is able to answer some questions. This afternoon he underwent a speech evaluation, and they feel he is safe to swallow some meds and a dysphagia 1 diet. he continues to have moderate dyspnea, but does admit that he feels he is getting better. He denies any significant pain, and specifically denies chest painor palpitations,abdominal pain, nausea or vomiting, diarrhea, dysuria. His sister came in again today, to fill out the CODE STATUS paperwork, and decided that while she does not want CPR, they would accept short-term ventilation if that would help him get over an episode of pneumonia or some other limited time diagnosis. June 07: this morning, the patient is looking much better. He is off of the BiPAP, and on oxygen by nasal cannula. He is sitting up in a chair, and says he is feeling much better. Nurses report he ate a very large breakfast.e was taken off his BiPAP mask this morning,and is currently on 3 L nasal cannula. Blood gas on that shows a fairly high pH, with continued elevated CO2 and low O2 , but he does seem to be improving. Otherwise, the patient says he is feeling much better. He denies subjective fever or chills, chest painor palpitations, abdominal pain, nausea or vomiting, diarrhea or constipation.. He does have a Hudson catheter in place, and we think that that might of been placed at the [facility]. The patient could not recall, but nursing notes there suggested that it was placed because of bladder outlet obstruction. June 08: this morning, the patient again was taken off BiPAP and placed on oxygen by nasal cannula. He did get up to a chair and ate a large breakfast. He says he is definitely feeling better. However, by the time that I saw him this morning, he was starting to fatigue, and was clearly using accessory muscles to breathe, though he denied significant shortness of breath. He says he may be a little bit more short of breath than usual, but was not sure. He continues to have a cough that is mostly nonproductive. He otherwise denies subjective fever or chills, chest pain or palpitations, abdominal pain, nausea or vomiting. Nursing staff says he is not yet had a significant bowel movement, in spite of several bowel meds. Hudson catheter remains in place for bladder outlet obstruction. I did have a fairly long discussion with his sister/POA this morning about his progress and his overall status. - Constitutional Vitals: Vital Signs Temp Pulse Resp BP Pulse Ox 98.6 F 80 19 127/96 98 06/08/16 08:00 06/08/16 13:00 06/08/16 13:00 06/08/16 13:00 06/08/16 13:00 Period Temp Pulse Resp BP Sys/Charles Pulse Ox Last 24 Hr 97.1 F-98.8 F 67-106 16-26 103-155/63-100 86-98 Intake and Output 06/07/16 06/08/16 06/08/16 21:59 05:59 13:59 Intake Total 2200 / 2200 200 / 200 240 / 240 Output Total 1600 / 1600 1025 / 1025 Balance 600 / 600 -825 / -825 240 / 240 Weight 160 lb 1.6 oz Intake & Output: Intake & Output 06/07/16 06/08/16 06/08/16 21:59 05:59 13:59 Intake Total 2200 / 2200 200 / 200 240 / 240 Output Total 1600 / 1600 1025 / 1025 Balance 600 / 600 -825 / -825 240 / 240 Weight 160 lb 1.6 oz Intake: IV 1000 / 1000 Dextrose 5%-1/2Ns W/20Meq 1000 / 1000 KCl 1,000 ml @ 50 mls/hr IV Q10H [facility] Rx#: [id number] Oral 1200 / 1200 200 / 200 240 / 240 Output: Urine Catheter Amount 1600 / 1600 1025 / 1025 Other: Meal Dinner Breakfast Percent of Meal Consumed 75% 100% Feeding Ability Needs Supervision Exam: n exam, he is awake and alert. Neck is supple without obvious JVD. Cardiac exam shows an irregularly irregular rhythm. Lungs: Have decreased breath sounds, but no loud wheezes and no significant rales are noted this morning. He does, however, appear a bit dyspneic, and is using accessory muscles. Abdomen: Is soft and nontender. Extremities: Show trace edema. Neurologic exam: The patient does appear a bit forgetful, but otherwise is awake and alert and cooperative. Motor exam is grossly nonfocal. Medical - PN: Obj Da - Labs CBC & Chem 7: 06/08/16 04:18 06/08/16 04:18 Labs: Abnormal Lab Results 06/08/16 06/08/16 06/08/16 04:18 04:18 04:18 WBC 11.7 H RBC Gran % 91.2 H Lymph % (Auto) 4.9 L Gran # 10.7 H Lymph # 0.6 L PT 30.4 H INR 2.8 H Potassium 3.2 L Chloride 88 L Carbon Dioxide 45 H* BUN 33 H Glucose 151 H Uric Acid 8.1 H Calcium Phosphorus Total Protein 06/07/16 06/07/16 06/07/16 04:03 04:03 04:03 WBC RBC 4.41 L Gran % 87.5 H Lymph % (Auto) 5.9 L Gran # 8.1 H Lymph # 0.6 L PT 35.4 H INR 3.4 H Potassium Chloride 88 L Carbon Dioxide 42 H* BUN 27 H Glucose 146 H Uric Acid 9.1 H Calcium 8.4 L Phosphorus 2.1 L Total Protein 5.8 L 06/06/16 06/06/16 06/06/16 04:15 04:15 04:15 WBC RBC Gran % 91.0 H Lymph % (Auto) 5.1 L Gran # 9.4 H Lymph # 0.5 L PT 33.4 H INR 3.1 H Potassium Chloride 88 L Carbon Dioxide 38 H BUN Glucose 151 H Uric Acid 9.1 H Calcium Phosphorus 2.0 L Total Protein 06/08: -intake and output balance is -1197 since admission. -aBG, on BiPAP settings of 14/8, 30% FiO2: PH 7.53, PCO2 68, PO2 55, bicarbonate 56, O2 saturation 94% -ABG:On 2 L nasal cannula: PH 7.5 one, PCO2 67, PO2 43, bicarbonate 53, O2 saturation 84% -chest x-ray: Shows improved pulmonary vascular congestion. There is interval development of bilateral bibasilar infiltrates, consistent with pneumonia. 06/06: -on 3 L O2: PH 7.53, PCO2 67, PO2 54, bicarbonate 56 O2 saturation 91% 06/05: -aBG this morning, on BiPAP, settings 14/8, 30% FiO2: PH 7.44, PCO2 78, PO2 51 bicarbonate 53, O2 saturation 92% -Patient did receive Lasix yesterday, and is now negative about 1400 mL since arrival. -blood cultures are negative so far. MRSA screen is negative. -echocardiogram done on June 05: Shows bilateral atrial enlargement as well as right and left ventricular enlargement, with LVEF of 60%., Moderate aortic regurgitation elevated pulmonary wedge pressure, elevated CVP. 06/04: -BNP is elevated at 3460; Troponin T is less than 0.01 -eKG from last night shows atrial fibrillation at a rate of 115, right axis deviation, possible right ventricular hypertrophy, nonspecific ST-T changes. -aBG done at 07 100 this morning, on BiPAP with settings of 14/8, FiO2 of 35%: Shows pH of 7.25, PCO2 of 93, PO2 of 48, bicarbonate of 40, 91% saturation :-aBG at 01 50 this morning, shows pH of 7.10, PCO2 of 132, PO2 of 58 bicarbonate of 41, O2 saturation of 78% on a 3 L OxiMax. lactic acid is normal at 1.0 -chest x-ray , 06/04:probable pulmonary congestion without definite edema. No focal infiltrate or mass. Mild cardiomegaly.. -urinalysis shows a few hyaline casts, but is otherwise benign Meds: Medications Acetaminophen (Tylenol) 650 mg PO Q4-6HP PRN PRN Reason: PAIN/FEVER > 101 Albuterol Sulfate (Ventolin) 2.5 mg NEB Q2HP PRN PRN Reason: Shortness Of Breath Or Wheezing Last Admin: 06/07/16 15:15 Dose: 2.5 mg Albuterol/Ipratropium (Duoneb) 3 ml NEB Q6HRT [facility] Last Admin: 06/08/16 06:34 Dose: 3 ml Bisacodyl (Dulcolax) 10 mg NE PRN PRN PRN Reason: Constipation Last Admin: 06/07/16 15:28 Dose: 10 mg Calcium Carbonate/Glycine (Tums) 500 mg CHEWED DAILY [facility] Last Admin: 06/08/16 08:52 Dose: 500 mg Carvedilol (Coreg) 3.125 mg PO BID [facility] Last Admin: 06/08/16 08:53 Dose: 3.125 mg Docusate Sodium (Colace) 100 mg PO BID PRN PRN Reason: Constipation Last Admin: 06/07/16 20:32 Dose: 100 mg Furosemide (Lasix) 20 mg IV Q12 [facility] Last Admin: 06/08/16 08:53 Dose: 20 mg Ceftriaxone Sodium 1 gm/ (Dextrose) 50 mls @ 100 mls/hr IV DAILY [facility] Last Admin: 06/08/16 08:53 Dose: 100 mls/hr Potassium Chloride 40 meq/ (Dextrose) 520 mls @ 130 mls/hr IV ONCE ONE Stop: 06/08/16 14:01 Last Admin: 06/08/16 10:22 Dose: 130 mls/hr Iron Carb/Multivit/Trouble Locator Test Desk/Folic Acid (Multivitamin W/Minerals) 1 tab PO DAILY [facility] Last Admin: 06/08/16 08:53 Dose: 1 tab Lorazepam (Ativan) 0.5 mg IV Q2HP PRN PRN Reason: ANXIETY/SEDATION Magnesium Hydroxide (Milk Of Magnesia) 30 ml PO DAILYP PRN PRN Reason: Constipation Last Admin: 06/08/16 11:42 Dose: 30 ml Methylprednisolone Sodium Succinate (Solu-Medrol) 80 mg IV Q12 [facility] Last Admin: 06/08/16 08:53 Dose: 80 mg Metoprolol Tartrate (Lopressor) 5 mg IV Q4HP PRN PRN Reason: Tachyarrhythmias Last Admin: 06/06/16 09:45 Dose: 5 mg Morphine Sulfate (Morphine) 1 mg IV Q2HP PRN PRN Reason: Pain Naloxone HCl (Narcan) 0.1 mg IV Q2MIN PRN PRN Reason: Opiate Reversal Last Admin: 06/05/16 00:03 Dose: 0.1 mg Ondansetron HCl (Zofran) 4 mg IV Q4-6HP PRN PRN Reason: Nausea And Vomiting Pantoprazole Sodium (Protonix) 40 mg IV QAMAC [facility] Last Admin: 06/08/16 07:35 Dose: 40 mg Artificial Tears 2 dose BOTH EYES Q4HP PRN PRN Reason: Dry Eyes Melatonin [Melatonin (] 5 Mg Tablet) 1 dose PO HSP PRN PRN Reason: Insomnia Polyethylene Glycol (Miralax) 17 gm PO BID [facility] Last Admin: 06/08/16 09:00 Dose: 17 gm Potassium [facility]) [facility] Admin: 06/08/16 08:53 Dose: 10 meq Potassium/Phosphorus/Sodium (Neutra Phos) 1 packet PO BID [facility] Last Admin: 06/08/16 08:52 Dose: 1 packet Senna (Senokot) 1 tab PO BID [facility] Last Admin: 06/08/16 09:00 Dose: 1 tab Sodium Chloride (Saline Flush) 10 ml IV Q8 [facility] Last Admin: 06/08/16 07:35 Dose: 10 ml Tamsulosin HCl (Flomax) 0.4 mg PO DAILY [facility] Last Admin: 06/08/16 08:53 Dose: 0.4 mg Vitamin D (Vitamin D3) 2,000 unit PO HS [facility] Last Admin: 06/07/16 20:31 Dose: 2,000 unit Warfarin Sodium (Coumadin) 3 mg PO ONCE@1400 ONE Stop: 06/08/16 14:01 Medical - PN: A/P - Time Spent With Patient Total time spent is greater than 50% in coordination of care (as documented) at patient's floor/unit and/or counseling patient: (1) Pneumonia Status: Acute Current Visit: Yes (2) Urine retention Status: Acute Current Visit: Yes (3) Atrial fibrillation Status: Acute Current Visit: Yes (4) Anticoagulant long-term use Status: Acute Current Visit: Yes (5) COPD (chronic obstructive pulmonary disease) Status: Acute Current Visit: Yes (6) History of tobacco abuse Status: Acute Current Visit: Yes (7) Constipation Status: Acute Current Visit: Yes (8) Hyperlipidemia Status: Acute Current Visit: Yes - Narrative A/P Narrative: #1. Pulmonary. -this patient presented with signs and symptoms of pneumonia ,but formal reading on the initial chest x-ray does not show definite pneumonia, and does show mild pulmonary vascular congestion. his acute respiratory failure could also be due to end-stage COPD with acute exacerbation with or without superimposed infection and/or congestive heart failure. -chest x-ray today does show probable bibasilar pneumonia which is consistent with his clinical picture. -continue with IV ceftriaxone and azithromycin to cover community-acquired pneumonia as well as atypicals. -he is low risk for PE, given he is therapeutic on Coumadin. D-dimer was also normal at less than 0.27,. -continue IV steroids, bronchodilators, oxygen, pulmonary toilet. -the patient's respiratory status is much improved today. We will continue with oxygen via nasal cannula, as tolerated, and BiPAP when he tires. he is still retaining CO2, but we are not sure of his baseline. He also dropped his PO2 levels rather quickly when he is not on the BiPAP. #2. Cardiac. -[facility] records indicate possible cardiac history as well. We did obtain his discharge summary from [facility] from last August. Echocardiogram showed no signs of congestive heart failure, and ejection fraction was 60%. -echo here suggests four-chamber enlargement, but LVEF is normal. He probably does have some degree of pulmonary hypertension as well. -Patient has a history of atrial fibrillation, and is maintained on Coumadin. i believe pharmacy is managing his warfarin. INR was just a bit elevated today. heart rate has improved since he resumed his Coreg orally. -INR continues this in therapeutic range today. #3. History of tobacco abuse. Patient quit last year. #4. CODE STATUS: The patient's sister has his POA, and she is requesting, Limited CODE STATUS. she does not want chest compressions or defibrillation, might accept short-term ventilator management if he needed that just to get over a case of pneumonia. we are also trying to locate his signed POLST form from the [place]. #5. DVT prophylaxis: Continue Coumadin. Add SCDs. #6. GI. -Reported chronic constipation. Continue bowel Meds. .-Reported history of significant GI bleed last August. Continue IV Protonix. Monitor hemoglobin levels. #7. Fluids and nutrition. Phosphorus level is low.calcium is also borderline low. Added Neutra-Phos. -patient is now taking oral nutrition. -replace potassium or hypokalemia. so far today's visit has taken approximately 40 minutes, to review his test results, interview and examine him, spent time with his sister explaining his progress so far and plan for future care, and review things with nursing staff, as well as writing orders. Medical - PN: Qual - VTE Deep Vein Thrombosis/Pulmonary Embolism Present on Admission: No
[2016-06-08] MEDS ORDERED: WARFARIN 3 MG TABLET PO ONE (14:00)
[2016-06-08] MEDS ORDERED: FLEETS ADULT ENEMA PR PRN (16:38)
[2016-06-08] MEDS ORDERED: FLEETS ADULT ENEMA PR ONE (17:06)
[2016-06-08] MEDS: VITAMIN D3 1,000 UNIT TABLET PO SCH (20:44)
[2016-06-09] MEDS: IPRATROPIUM/ALBUTEROL 3 ML AMPUL.NEB NEB SCH ×4 (00:55→17:40)
[2016-06-09] MEDS: 0.9 % SODIUM CHLORIDE 10 ML SYRINGE IV SCH ×3 (05:27→22:50)
[2016-06-09 07:19] LABS: Basophils # (Auto) 0 K/mcL (0.0-0.3); Basophils % (Auto) 0.1 % (0.0-2.0); Eosinophils # (Auto) 0 K/mcL (0.0-0.7); Eosinophils % (Auto) 0.1 % (0.0-7.0); Granulocytes % (Auto) 90.8 % (38.0-78.0); Lymphocytes # (Auto) 0.8 K/mcL (1.5-4.8); Lymphocytes % (Auto) 5.8 % (15.5-49.0); Mean Cell Volume 95.1 fL (80.0-100.0); Mean Corpuscular HGB Conc 31.9 g/dL (31.0-36.0); Mean Corpuscular Hemoglobin 30.3 pg (26.0-34.0); Monocytes # (Auto) 0.4 K/mcL (0.1-0.9); Monocytes % (Auto) 3.2 % (1.0-9.0); Platelet Count 205 K/mcL (140-440); RBC 4.52 M/mcL (4.50-5.90); Red Cell Distribution Width 13.1 % (11.5-14.5)
[2016-06-09] MEDS: PANTOPRAZOLE 40 MG VIAL IV SCH (07:30)
[2016-06-09] MEDS ORDERED: VANCOMYCIN PER PHARMACY IV ONE (07:58)
[2016-06-09] MEDS: POTASSIUM CHLORIDE 10 MEQ TABLET PO SCH (08:00)
[2016-06-09 08:06] LABS: ALT/SGPT 23 U/l (0-40); Albumin 3.4 gm/dL (3.2-5.2); Albumin/Globulin Ratio 1.5 (1.0-2.3); Alkaline Phosphatase 67 U/L (39-117); Bilirubin,Direct < 0.2 mg/dL (0.0-0.3); Blood Urea Nitrogen 35 mg/dl (8-23); Gamma Glutamyl Transpeptidase 19 U/L (8-61); Magnesium 2.5 mg/dL (1.6-2.5); Phosphorous 4.1 mg/dL (2.7-4.5); Uric Acid 7.6 mg/dL (2.5-8.0)
[2016-06-09] MEDS: CARVEDILOL 3.125 MG TABLET PO SCH ×2 (08:56→18:01)
[2016-06-09] MEDS: FUROSEMIDE 20 MG/2 ML VIAL IV SCH ×2 (08:56→20:53)
[2016-06-09] MEDS: TAMSULOSIN 0.4 MG CAPSULE PO SCH (08:56)
[2016-06-09] MEDS: methylPREDNISolone SOD SUCC 125 MG/2 ML VIAL IV SCH ×2 (08:57→20:50)
[2016-06-09] MEDS: MULTIVIT,THER IRON,CA,FA & MIN 1 TABLET PO SCH (08:57)
[2016-06-09] MEDS: SENNOSIDES 1 TABLET PO SCH ×2 (08:57→20:56)
[2016-06-09] MEDS: CALCIUM CARBONATE 500 MG TAB.CHEW CHEWED SCH (08:57)
[2016-06-09] MEDS: NEUTRA PHOS 1 PACKET PO SCH ×2 (08:57→20:51)
[2016-06-09] MEDS: POLYETHYLENE GLYCOL 3350 17 GM PACKET PO SCH ×2 (08:57→20:56)
[2016-06-09] MEDS: metroNIDAZOLE 500 MG/100 ML BAG IV SCH ×3 (09:20→22:50)
[2016-06-09] MEDS: VANCOMYCIN 1,000 MG in 0.9 % SODIUM CHLORIDE 250 ML IV SCH ×2 (10:00→20:51)
[2016-06-09] MEDS: cefTRIAXone 1 GM in DEXTROSE 5% IN WATER 50 ML IV SCH (10:27)
--- NOTE | 2016-06-09 11:21 | Internal Med Progress Note ---
Medical - PN: Subj Patient information: Note initiated : 06/09/16 at 11:21 am Service Date, if different from initiated Date: [] Patient: Shameka Sy 80 y/o M admitted on 06/04/16 for Shortness of Breath/ Pneumonia. Chief Complaint: [] Interval history: June 04, 2016: History of present illness: Mr. Sy is a 80 [facility] old male [facility] [place] assisted today. He apparently developed rather sudden increase in shortness of breath yesterday morning, and had a chest x-ray suggestive of left lower lobe pneumonia. It looks like he was treated with azithromycin and Rocephin. However according to his sister, he continued to get more short of breath over the course of the day. He was sent to the emergency room for further evaluation. In the ER he initially had an O2 saturation of 90% on 10 L nasal cannula, and is now requiring about15 L nonrebreather mask to keep his saturations above 92%. His sister is here with him, and so she is his only family. She is aware that he had shortness of breath yesterday and believes he had fever and chills as well as productive cough. She does not believe that he has had recent headaches or dizziness, new eye or Or ear symptoms, sore throat, chest pain or palpitations, abdominal pain, nausea vomiting or diarrhea. She reports she does have chronic constipation. She is not aware of any bladder complaints. June 05, 2016: the patient did remain on BiPAP for the rest of the night and morning. ABG definitely looks better, although not normal, on the BiPAP. The patient is a little more responsive this morning. He does open his eyes,and appears to say yes and no in response to simple questions. his sister is here again this morning,and is rethinking her brother's CODE STATUS. He never did put anything in writing, so she is now thinking that is going on a ventilator for a few days might get him over whatever respiratory failure he's having at the moment then she would consider giving us the okay to do that. She reiterates that he and she never had a steven discussion about this issue. he patient seems indicated that he is not having any pain. He seems to deny chest pain or abdominal pain, and seems to understand that the BiPAP mask is helping him to breathe. May: this morning, the patient has quite a bit more awake. He is able to answer some questions. This afternoon he underwent a speech evaluation, and they feel he is safe to swallow some meds and a dysphagia 1 diet. he continues to have moderate dyspnea, but does admit that he feels he is getting better. He denies any significant pain, and specifically denies chest painor palpitations,abdominal pain, nausea or vomiting, diarrhea, dysuria. His sister came in again today, to fill out the CODE STATUS paperwork, and decided that while she does not want CPR, they would accept short-term ventilation if that would help him get over an episode of pneumonia or some other limited time diagnosis. June 07: this morning, the patient is looking much better. He is off of the BiPAP, and on oxygen by nasal cannula. He is sitting up in a chair, and says he is feeling much better. Nurses report he ate a very large breakfast.e was taken off his BiPAP mask this morning,and is currently on 3 L nasal cannula. Blood gas on that shows a fairly high pH, with continued elevated CO2 and low O2 , but he does seem to be improving. Otherwise, the patient says he is feeling much better. He denies subjective fever or chills, chest painor palpitations, abdominal pain, nausea or vomiting, diarrhea or constipation.. He does have a Hudson catheter in place, and we think that that might of been placed at the [place]. The patient could not recall, but nursing notes there suggested that it was placed because of bladder outlet obstruction. June 08: this morning, the patient again was taken off BiPAP and placed on oxygen by nasal cannula. He did get up to a chair and ate a large breakfast. He says he is definitely feeling better. However, by the time that I saw him this morning, he was starting to fatigue, and was clearly using accessory muscles to breathe, though he denied significant shortness of breath. He says he may be a little bit more short of breath than usual, but was not sure. He continues to have a cough that is mostly nonproductive. He otherwise denies subjective fever or chills, chest pain or palpitations, abdominal pain, nausea or vomiting. Nursing staff says he is not yet had a significant bowel movement, in spite of several bowel meds. Hudson catheter remains in place for bladder outlet obstruction. I did have a fairly long discussion with his sister/POA this morning about his progress and his overall status. June 09: the patient is awake and alert this morning. he is again sitting up in a chair, just had breakfast. He says he feels well. He certainly seems less dyspneic than yesterday. Later in the morning nurses got back into bed, and then he did become more dyspneic, and O2 saturations dropped again. Otherwise, he denies subjective fever or chills, chest pain or abdominal pain, nausea or vomiting, diarrhea or constipation. He continues with a Hudson catheter regarding his bladder outlet obstruction. - Constitutional Vitals: Vital Signs Temp Pulse Resp BP Pulse Ox 98.2 F 106 H 14 126/65 89 L 06/09/16 04:00 06/09/16 11:02 06/09/16 11:02 06/09/16 06:00 06/09/16 11:02 Period Temp Pulse Resp BP Sys/Charles Pulse Ox Last 24 Hr 98.1 F-98.2 F 76-106 14-25 108-142/65-100 84-98 Intake and Output 06/08/16 06/09/16 06/09/16 21:59 05:59 13:59 Intake Total 530 / 530 440 / 440 100 / 100 Output Total 825 / 825 1151 / 1151 Balance -295 / -295 -711 / -711 100 / 100 Weight 165 lb 8 oz Intake & Output: Intake & Output 06/08/16 06/09/16 06/09/16 21:59 05:59 13:59 Intake Total 530 / 530 440 / 440 100 / 100 Output Total 825 / 825 1151 / 1151 Balance -295 / -295 -711 / -711 100 / 100 Weight 165 lb 8 oz Intake: IV 50 / 50 100 / 100 Dextrose 5% in Water 50 50 / 50 ml @ 100 mls/hr IV DAILY KIRA with Rocephin 1 gm Rx #:[id number] Oral 480 / 480 440 / 440 Output: Urine Catheter Amount 700 / 700 900 / 900 Void Amount 125 / 125 250 / 250 # of times incontinent of 1 urine Other: Meal Dinner Percent of Meal Consumed 100% Feeding Ability Needs Supervision # Bowel Movements 1 Exam: he is sitting up in a chair initially, and then his back in bed. Neck shows no obvious JVD. Cardiac examshows an irregularly irregular rhythm. Lung exam shows decreased breath sound throughout. I do not hear any wheezing, rhonchi, rales today. He has less sensory muscle use this morning. Abdomen is soft and nontender. Hudson catheter is draining clear yellow urine. Extremities show no significant edema. neurologic: The patient is pleasantly forgetful He apparently became a little confused last night,and took a swing at a nurse. He settled down nicely after low-dose Ativan. Motor exam is grossly nonfocal. Medical - PN: Obj Da - Labs CBC & Chem 7: 06/09/16 04:13 06/09/16 04:23 Labs: Abnormal Lab Results 06/09/16 06/09/16 06/09/16 04:23 04:13 04:13 WBC 13.0 H RBC Gran % 90.8 H Lymph % (Auto) 5.8 L Gran # 11.8 H Lymph # 0.8 L PT 26.4 H INR 2.3 H Potassium Chloride 88 L Carbon Dioxide 39 H BUN 35 H Glucose 132 H Uric Acid Calcium 8.4 L Phosphorus Total Protein 5.6 L 06/08/16 06/08/16 06/08/16 04:18 04:18 04:18 WBC 11.7 H RBC Gran % 91.2 H Lymph % (Auto) 4.9 L Gran # 10.7 H Lymph # 0.6 L PT 30.4 H INR 2.8 H Potassium 3.2 L Chloride 88 L Carbon Dioxide 45 H* BUN 33 H Glucose 151 H Uric Acid 8.1 H Calcium Phosphorus Total Protein 06/07/16 06/07/16 06/07/16 04:03 04:03 04:03 WBC RBC 4.41 L Gran % 87.5 H Lymph % (Auto) 5.9 L Gran # 8.1 H Lymph # 0.6 L PT 35.4 H INR 3.4 H Potassium Chloride 88 L Carbon Dioxide 42 H* BUN 27 H Glucose 146 H Uric Acid 9.1 H Calcium 8.4 L Phosphorus 2.1 L Total Protein 5.8 L 06/09: -Cumulative intake and output is negative for 2628 mL -urinalysis shows 13 red blood cells, but negative nitrites and leukocyte esterase. -blood cultures are negative so far. 06/08: -intake and output balance is -1197 since admission. -aBG, on BiPAP settings of 14/8, 30% FiO2: PH 7.53, PCO2 68, PO2 55, bicarbonate 56, O2 saturation 94% -ABG:On 2 L nasal cannula: PH 7.5 one, PCO2 67, PO2 43, bicarbonate 53, O2 saturation 84% -chest x-ray: Shows improved pulmonary vascular congestion. There is interval development of bilateral bibasilar infiltrates, consistent with pneumonia. 06/06: -on 3 L O2: PH 7.53, PCO2 67, PO2 54, bicarbonate 56 O2 saturation 91% 06/05: -aBG this morning, on BiPAP, settings 14/8, 30% FiO2: PH 7.44, PCO2 78, PO2 51 bicarbonate 53, O2 saturation 92% -Patient did receive Lasix yesterday, and is now negative about 1400 mL since arrival. -blood cultures are negative so far. MRSA screen is negative. -echocardiogram done on June 05: Shows bilateral atrial enlargement as well as right and left ventricular enlargement, with LVEF of 60%., Moderate aortic regurgitation elevated pulmonary wedge pressure, elevated CVP. 06/04: -BNP is elevated at 3460; Troponin T is less than 0.01 -eKG from last night shows atrial fibrillation at a rate of 115, right axis deviation, possible right ventricular hypertrophy, nonspecific ST-T changes. -aBG done at 07 100 this morning, on BiPAP with settings of 14/8, FiO2 of 35%: Shows pH of 7.25, PCO2 of 93, PO2 of 48, bicarbonate of 40, 91% saturation :-aBG at 01 50 this morning, shows pH of 7.10, PCO2 of 132, PO2 of 58 bicarbonate of 41, O2 saturation of 78% on a 3 L OxiMax. lactic acid is normal at 1.0 -chest x-ray , 06/04:probable pulmonary congestion without definite edema. No focal infiltrate or mass. Mild cardiomegaly.. -urinalysis shows a few hyaline casts, but is otherwise benign Meds: Medications Acetaminophen (Tylenol) 650 mg PO Q4-6HP PRN PRN Reason: PAIN/FEVER > 101 Albuterol Sulfate (Ventolin) 2.5 mg NEB Q2HP PRN PRN Reason: Shortness Of Breath Or Wheezing Last Admin: 06/07/16 15:15 Dose: 2.5 mg Albuterol/Ipratropium (Duoneb) 3 ml NEB Q6HRT [facility] Last Admin: 06/09/16 07:00 Dose: 3 ml Bisacodyl (Dulcolax) 10 mg IL PRN PRN PRN Reason: Constipation Last Admin: 06/07/16 15:28 Dose: 10 mg Calcium Carbonate/Glycine (Tums) 500 mg CHEWED DAILY [facility] Last Admin: 06/09/16 08:57 Dose: 500 mg [facility] Docusate Sodium (Colace) 100 mg PO BID PRN PRN Reason: Constipation Last Admin: 06/07/16 20:32 Dose: 100 mg Furosemide (Lasix) 20 mg IV Q12 [facility] Last Admin: 06/09/16 08:56 Dose: 20 mg Ceftriaxone Sodium 1 gm/ (Dextrose) 50 mls @ 100 mls/hr IV DAILY [facility] Last Admin: 06/09/16 10:27 Dose: 100 mls/hr Metronidazole (Flagyl) 500 mg in 100 mls @ 100 mls/hr IV Q8 [facility] Last Infusion: 06/09/16 10:25 Dose: Infused Vancomycin HCl 1,000 mg/ (Sodium Chloride) 250 mls @ 250 mls/hr IV Q12 [facility] Iron Carb/Multivit/Goldstream/Folic Acid (Multivitamin W/Minerals) 1 tab PO DAILY [facility] Last Admin: 06/09/16 08:57 Dose: 1 tab Lorazepam (Ativan) 0.5 mg IV Q2HP PRN PRN Reason: ANXIETY/SEDATION Last Admin: 06/08/16 23:27 Dose: 0.5 mg Magnesium Hydroxide (Milk Of Magnesia) 30 ml PO DAILYP PRN PRN Reason: Constipation Last Admin: 06/08/16 11:42 Dose: 30 ml Methylprednisolone Sodium Succinate (Solu-Medrol) 80 mg IV Q12 [facility] Last Admin: 06/09/16 08:57 Dose: 80 mg Metoprolol Tartrate (Lopressor) 5 mg IV Q4HP PRN PRN Reason: Tachyarrhythmias Last Admin: 06/06/16 09:45 Dose: 5 mg Morphine Sulfate (Morphine) 1 mg IV Q2HP PRN PRN Reason: Pain Naloxone HCl (Narcan) 0.1 mg IV Q2MIN PRN PRN Reason: Opiate Reversal Last Admin: 06/05/16 00:03 Dose: 0.1 mg Ondansetron HCl (Zofran) 4 mg IV Q4-6HP PRN PRN Reason: Nausea And Vomiting Pantoprazole Sodium (Protonix) 40 mg IV QAMAC [facility] Last Admin: 06/09/16 07:30 Dose: 40 mg Artificial Tears 2 dose BOTH EYES Q4HP PRN PRN Reason: Dry Eyes Melatonin [Melatonin (] 5 Mg Tablet) 1 dose PO HSP PRN PRN Reason: Insomnia Polyethylene Glycol (Miralax) 17 gm PO BID [facility] Last Admin: 06/09/16 08:57 Dose: 17 gm Potassium Chloride (Kdur) 10 meq PO QAC [facility] Last Admin: 06/09/16 08:00 Dose: 10 meq Potassium/Phosphorus/Sodium (Neutra Phos) 1 packet PO BID [facility] Last Admin: 06/09/16 08:57 Dose: 1 packet Senna (Senokot) 1 tab PO BID [facility] Last Admin: 06/09/16 08:57 Dose: Not Given Sodium Chloride (Saline Flush) 10 ml IV Q8 [facility] Last Admin: 06/09/16 05:27 Dose: 10 ml Tamsulosin HCl (Flomax) 0.4 mg PO DAILY [facility] Last Admin: 06/09/16 08:56 Dose: 0.4 mg Vitamin D (Vitamin D3) 2,000 unit PO HS [facility] Last Admin: 06/08/16 20:44 Dose: 2,000 unit Warfarin Sodium (Coumadin) 5 mg PO ONCE@1400 ONE Stop: 06/09/16 14:01 Medical - PN: A/P - Time Spent With Patient Total time spent is greater than 50% in coordination of care (as documented) at patient's floor/unit and/or counseling patient: (1) Pneumonia Status: Acute Current Visit: Yes (2) Urine retention Status: Acute Current Visit: Yes (3) Atrial fibrillation Status: Acute Current Visit: Yes (4) Anticoagulant long-term use Status: Acute Current Visit: Yes (5) COPD (chronic obstructive pulmonary disease) Status: Acute Current Visit: Yes (6) History of tobacco abuse Status: Acute Current Visit: Yes (7) Constipation Status: Acute Current Visit: Yes (8) Hyperlipidemia Status: Acute Current Visit: Yes - Narrative A/P Narrative: #1. Pulmonary. -this patient presented with signs and symptoms of pneumonia ,but formal reading on the initial chest x-ray did not show definite pneumonia, and does show mild pulmonary vascular congestion. his acute respiratory failure could also be due to end-stage COPD with acute exacerbation with or without superimposed infection and/or congestive heart failure. -follow-up chest x-ray yesterday does show probable bibasilar pneumonia which is consistent with his clinical picture.lood cell count has been climbing the last 2 days, and I suspect silent aspiration. Ceftriaxone should covergram positives and gram negatives fairly well. I will add Flagyl today, to cover anaerobes.he is also status post a course of Zithromax. -he is low risk for PE, given he is therapeutic on Coumadin. D-dimer was also normal at less than 0.27,. -continue IV steroids, bronchodilators, oxygen, pulmonary toilet. -the patient's respiratory status is much improved . We will continue with oxygen via nasal cannula, as tolerated, and BiPAP when he tires. he is still retaining CO2, but we are not sure of his baseline. He also dropped his PO2 levels rather quickly when he is not on the BiPAP. We will continue with oxygen by nasal cannula as tolerated, and then put him back on BiPAP to rest when needed. [facility] is weaned off the [facility], is my understanding. #2. Cardiac. -vA records indicate possible cardiac history as well. We did obtain his discharge summary from [facility] from last August. Echocardiogram showed no signs of congestive heart failure, and ejection fraction was 60%. -echo here suggests four-chamber enlargement, but LVEF is normal. He probably does have some degree of pulmonary hypertension as well. -Patient has a history of atrial fibrillation, and is maintained on Coumadin. i believe pharmacy is managing his warfarin. heart rate has improved since he resumed his Coreg orally. -INR continues this in therapeutic range today. #3. History of tobacco abuse. Patient quit last year. #4. CODE STATUS: The patient's sister has his POA, and she is requesting, Limited CODE STATUS. she does not want chest compressions or defibrillation, might accept short-term ventilator management if he needed that just to get over a case of pneumonia. we are also trying to locate his signed POLST form from the [place]. #5. DVT prophylaxis: Continue Coumadin. Add SCDs. #6. GI. -Reported chronic constipation. Continue bowel Meds. .-Reported history of significant GI bleed last August. Continue IV Protonix. Monitor hemoglobin levels. #7. Fluids and nutrition. - Phosphorus level is low.calcium is also borderline low. Added Neutra- Phos.this is improved today. -patient is now taking oral nutrition. -replaced potassium for hypokalemia. -calcium is a little bit low, but albumin is borderline low as well, and this corrects to normal. approximately 30 minutes was spent today, reviewing patient's test results, interviewing and examining him, reviewing his case with nursing and other staff , and writing orders. Medical - PN: Qual - VTE Deep Vein Thrombosis/Pulmonary Embolism Present on Admission: No
[2016-06-09 12:47] LABS: Appearance,Urine CLOUDY; Bacteria,Urine 0 /hpf (0); Bilirubin,Urine NEG (NEG); Color,Urine YELLOW; Glucose,Urine (UA) NEGATIVE (NEG); Leukocyte Esterase,Urine NEG /uL (NEG); Nitrate,Urine NEG (NEG); Protein,Urine NEG (NEG); Specific Gravity,Urine 1.011 (1.000-1.035); Urine Amorphous Crystals MANY /hpf (0); Urine Blood 0.2 mg/dL (<0.03); Urine RBC 13 /hpf (0-1); Urine Squamous Epithelial Cell < 1 /hpf (0-4); Urine WBC 2 /hpf (0-4); Urobilinogen,Urine NEG (NEG)
[2016-06-09] MEDS ORDERED: WARFARIN 5 MG TABLET PO ONE (14:00)
[2016-06-09] MEDS: VITAMIN D3 1,000 UNIT TABLET PO SCH (20:51)
[2016-06-10] MEDS: IPRATROPIUM/ALBUTEROL 3 ML AMPUL.NEB NEB SCH ×6 (01:10→18:07)
[2016-06-10] MEDS: metroNIDAZOLE 500 MG/100 ML BAG IV SCH (05:27)
[2016-06-10 06:30] LABS: Basophils # (Auto) 0 K/mcL (0.0-0.3); Basophils % (Auto) 0 % (0.0-2.0); Eosinophils # (Auto) 0 K/mcL (0.0-0.7); Eosinophils % (Auto) 0 % (0.0-7.0); Granulocytes % (Auto) 94.2 % (38.0-78.0); Lymphocytes # (Auto) 0.6 K/mcL (1.5-4.8); Lymphocytes % (Auto) 4.1 % (15.5-49.0); Mean Cell Volume 94.8 fL (80.0-100.0); Mean Corpuscular HGB Conc 32.3 g/dL (31.0-36.0); Mean Corpuscular Hemoglobin 30.6 pg (26.0-34.0); Monocytes # (Auto) 0.2 K/mcL (0.1-0.9); Monocytes % (Auto) 1.7 % (1.0-9.0); Platelet Count 231 K/mcL (140-440); RBC 4.53 M/mcL (4.50-5.90); Red Cell Distribution Width 13.3 % (11.5-14.5)
[2016-06-10] MEDS: 0.9 % SODIUM CHLORIDE 10 ML SYRINGE IV SCH ×3 (06:58→23:00)
[2016-06-10] MEDS: PANTOPRAZOLE 40 MG VIAL IV SCH (06:58)
[2016-06-10 07:35] LABS: ALT/SGPT 25 U/l (0-40); Albumin 3.1 gm/dL (3.2-5.2); Albumin/Globulin Ratio 1.2 (1.0-2.3); Alkaline Phosphatase 60 U/L (39-117); Bilirubin,Direct < 0.2 mg/dL (0.0-0.3); Blood Urea Nitrogen 34 mg/dl (8-23); Gamma Glutamyl Transpeptidase 18 U/L (8-61); Magnesium 2.5 mg/dL (1.6-2.5); Phosphorous 4.6 mg/dL (2.7-4.5); Uric Acid 6.5 mg/dL (2.5-8.0)
[2016-06-10] MEDS: POTASSIUM CHLORIDE 10 MEQ TABLET PO SCH (08:25)
[2016-06-10] MEDS: POLYETHYLENE GLYCOL 3350 17 GM PACKET PO SCH ×2 (08:25→21:25)
[2016-06-10] MEDS: CALCIUM CARBONATE 500 MG TAB.CHEW CHEWED SCH (08:25)
[2016-06-10] MEDS: FUROSEMIDE 20 MG/2 ML VIAL IV SCH ×2 (08:25→21:24)
[2016-06-10] MEDS: NEUTRA PHOS 1 PACKET PO SCH ×2 (08:25→21:25)
[2016-06-10] MEDS: DOCUSATE SODIUM 100 MG CAPSULE PO PRN (08:26)
[2016-06-10] MEDS: cefTRIAXone 1 GM in DEXTROSE 5% IN WATER 50 ML IV SCH (08:27)
[2016-06-10] MEDS: CARVEDILOL 3.125 MG TABLET PO SCH ×2 (08:31→17:50)
[2016-06-10] MEDS: TAMSULOSIN 0.4 MG CAPSULE PO SCH (08:31)
[2016-06-10] MEDS: MULTIVIT,THER IRON,CA,FA & MIN 1 TABLET PO SCH (08:31)
[2016-06-10] MEDS: methylPREDNISolone SOD SUCC 125 MG/2 ML VIAL IV SCH (08:31)
[2016-06-10] MEDS: CLINDAMYCIN 600 MG in DEXTROSE 5% IN WATER 50 ML IV SCH ×3 (09:00→22:00)
[2016-06-10] MEDS: SENNOSIDES 1 TABLET PO SCH ×2 (09:09→21:25)
[2016-06-10] MEDS: VANCOMYCIN 1,000 MG in 0.9 % SODIUM CHLORIDE 250 ML IV SCH ×2 (10:00→21:25)
--- NOTE | 2016-06-10 11:52 | Internal Med Progress Note ---
Medical - PN: Subj Patient information: Note initiated : 06/10/16 at 11:45 am Service Date, if different from initiated Date: [] Patient: Shameka Sy 80 y/o M admitted on 06/04/16 for Shortness of Breath/ Pneumonia. Chief Complaint: [] Interval history: June 04, 2016: History of present illness: Mr. Sy is a 80 [facility] [place] [facility] today. He apparently developed rather sudden increase in shortness of breath yesterday morning, and had a chest x-ray suggestive of left lower lobe pneumonia. It looks like he was treated with azithromycin and Rocephin. However according to his sister, he continued to get more short of breath over the course of the day. He was sent to the emergency room for further evaluation. In the ER he initially had an O2 saturation of 90% on 10 L nasal cannula, and is now requiring about15 L nonrebreather mask to keep his saturations above 92%. His sister is here with him, and so she is his only family. She is aware that he had shortness of breath yesterday and believes he had fever and chills as well as productive cough. She does not believe that he has had recent headaches or dizziness, new eye or Or ear symptoms, sore throat, chest pain or palpitations, abdominal pain, nausea vomiting or diarrhea. She reports she does have chronic constipation. She is not aware of any bladder complaints. June 05, 2016: the patient did remain on BiPAP for the rest of the night and morning. ABG definitely looks better, although not normal, on the BiPAP. The patient is a little more responsive this morning. He does open his eyes,and appears to say yes and no in response to simple questions. his sister is here again this morning,and is rethinking her brother's CODE STATUS. He never did put anything in writing, so she is now thinking that is going on a ventilator for a few days might get him over whatever respiratory failure he's having at the moment then she would consider giving us the okay to do that. She reiterates that he and she never had a steven discussion about this issue. he patient seems indicated that he is not having any pain. He seems to deny chest pain or abdominal pain, and seems to understand that the BiPAP mask is helping him to breathe. May: this morning, the patient has quite a bit more awake. He is able to answer some questions. This afternoon he underwent a speech evaluation, and they feel he is safe to swallow some meds and a dysphagia 1 diet. he continues to have moderate dyspnea, but does admit that he feels he is getting better. He denies any significant pain, and specifically denies chest painor palpitations,abdominal pain, nausea or vomiting, diarrhea, dysuria. His sister came in again today, to fill out the CODE STATUS paperwork, and decided that while she does not want CPR, they would accept short-term ventilation if that would help him get over an episode of pneumonia or some other limited time diagnosis. June 07: this morning, the patient is looking much better. He is off of the BiPAP, and on oxygen by nasal cannula. He is sitting up in a chair, and says he is feeling much better. Nurses report he ate a very large breakfast.e was taken off his BiPAP mask this morning,and is currently on 3 L nasal cannula. Blood gas on that shows a fairly high pH, with continued elevated CO2 and low O2 , but he does seem to be improving. Otherwise, the patient says he is feeling much better. He denies subjective fever or chills, chest painor palpitations, abdominal pain, nausea or vomiting, diarrhea or constipation.. He does have a Hudson catheter in place, and we think that that might of been placed at the [place]. The patient could not recall, but nursing notes there suggested that it was placed because of bladder outlet obstruction. June 08: this morning, the patient again was taken off BiPAP and placed on oxygen by nasal cannula. He did get up to a chair and ate a large breakfast. He says he is definitely feeling better. However, by the time that I saw him this morning, he was starting to fatigue, and was clearly using accessory muscles to breathe, though he denied significant shortness of breath. He says he may be a little bit more short of breath than usual, but was not sure. He continues to have a cough that is mostly nonproductive. He otherwise denies subjective fever or chills, chest pain or palpitations, abdominal pain, nausea or vomiting. Nursing staff says he is not yet had a significant bowel movement, in spite of several bowel meds. Hudson catheter remains in place for bladder outlet obstruction. I did have a fairly long discussion with his sister/POA this morning about his progress and his overall status. June 09: the patient is awake and alert this morning. he is again sitting up in a chair, just had breakfast. He says he feels well. He certainly seems less dyspneic than yesterday. Later in the morning nurses got back into bed, and then he did become more dyspneic, and O2 saturations dropped again. Otherwise, he denies subjective fever or chills, chest pain or abdominal pain, nausea or vomiting, diarrhea or constipation. He continues with a Hudson catheter regarding his bladder outlet obstruction. 06/10- patient doing a lot better. No overnight events. On 2 L oxygen. No significant telemetry events. No concerns per nursing staff. on antibiotic coverage. Family at bedside. Updated daily status nd plan to transition out of ICU possible in 48 hours. Intermittently on BiPAP. Feels better since previous day - Constitutional Vitals: Vital Signs Temp Pulse Resp BP Pulse Ox 98.4 F 88 18 122/67 89 L 06/10/16 08:00 06/10/16 08:00 06/10/16 10:00 06/10/16 10:00 06/10/16 10:00 Period Temp Pulse Resp BP Sys/Charles Pulse Ox Last 24 Hr 97.0 F-98.5 F 74-99 17-22 108-144/60-108 89-97 Intake and Output 06/09/16 06/10/16 06/10/16 21:59 05:59 13:59 Intake Total 580 / 580 150 / 150 760 / 760 Output Total 300 / 300 400 / 400 Balance 280 / 280 -250 / -250 760 / 760 Weight 165 lb 9.6 oz Intake & Output: Intake & Output 06/09/16 06/10/16 06/10/16 21:59 05:59 13:59 Intake Total 580 / 580 150 / 150 760 / 760 Output Total 300 / 300 400 / 400 Balance 280 / 280 -250 / -250 760 / 760 Weight 165 lb 9.6 oz Intake: IV 100 / 100 100 / 100 400 / 400 Sodium Chloride 0.9% 250 250 / 250 ml @ 250 mls/hr IV Q12 IKRA with Vancomycin 1,000 mg Rx#:[id number] Dextrose 5% in Water 50 50 / 50 ml @ 100 mls/hr IV DAILY KIRA with Rocephin 1 gm Rx #:[id number] Oral 480 / 480 50 / 50 360 / 360 Output: Urine Catheter Amount 300 / 300 400 / 400 Other: Meal Breakfast Percent of Meal Consumed 50% Feeding Ability Assist with Tray Set Up General appearance: cooperative, no acute distress Exam: alert oriented no anxiety nonlabored breathing On 2 L oxygen Medical - PN: Obj Da - Labs CBC & Chem 7: 06/10/16 03:50 06/10/16 03:50 Labs: Abnormal Lab Results 06/10/16 06/10/16 06/10/16 03:50 03:50 03:50 WBC 13.9 H Gran % 94.2 H Lymph % (Auto) 4.1 L Gran # 13.1 H Lymph # 0.6 L PT 30.2 H INR 2.8 H Potassium Chloride 87 L Carbon Dioxide 44 H* BUN 34 H Glucose 143 H Uric Acid Calcium 8.4 L Phosphorus 4.6 H Total Protein 5.7 L Albumin 3.1 L Urine Occult Blood Urine RBC Amorphous Crystals 06/09/16 06/09/16 06/09/16 11:15 04:23 04:13 WBC 13.0 H Gran % 90.8 H Lymph % (Auto) 5.8 L Gran # 11.8 H Lymph # 0.8 L PT INR Potassium Chloride 88 L Carbon Dioxide 39 H BUN 35 H Glucose 132 H Uric Acid Calcium 8.4 L Phosphorus Total Protein 5.6 L Albumin Urine Occult Blood 0.2 A Urine RBC 13 H Amorphous Crystals Many A 06/09/16 06/08/16 06/08/16 04:13 04:18 04:18 WBC 11.7 H Gran % 91.2 H Lymph % (Auto) 4.9 L Gran # 10.7 H Lymph # 0.6 L PT 26.4 H 30.4 H INR 2.3 H 2.8 H Potassium Chloride Carbon Dioxide BUN Glucose Uric Acid Calcium Phosphorus Total Protein Albumin Urine Occult Blood Urine RBC Amorphous Crystals 06/08/16 04:18 WBC Gran % Lymph % (Auto) Gran # Lymph # PT INR Potassium 3.2 L Chloride 88 L Carbon Dioxide 45 H* BUN 33 H Glucose 151 H Uric Acid 8.1 H Calcium Phosphorus Total Protein Albumin Urine Occult Blood Urine RBC Amorphous Crystals Meds: Medications Acetaminophen (Tylenol) 650 mg PO Q4-6HP PRN PRN Reason: PAIN/FEVER > 101 Albuterol Sulfate (Ventolin) 2.5 mg NEB Q2HP PRN PRN Reason: Shortness Of Breath Or Wheezing Last Admin: 06/07/16 15:15 Dose: 2.5 mg Albuterol/Ipratropium (Duoneb) 3 ml NEB Q6HRT [facility] Last Admin: 06/10/16 07:20 Dose: 3 ml Bisacodyl (Dulcolax) 10 mg AL PRN PRN PRN Reason: Constipation Last Admin: 06/07/16 15:28 Dose: 10 mg Calcium Carbonate/Glycine (Tums) 500 mg CHEWED DAILY [facility] Last Admin: 06/10/16 08:25 Dose: 500 mg [facility] ([facility] Last Admin: 06/10/16 08:31 Dose: 3.125 mg Docusate Sodium (Colace) 100 mg PO BID PRN PRN Reason: Constipation Last Admin: 06/10/16 08:26 Dose: 100 mg Furosemide (Lasix) 20 mg IV Q12 [facility] Last Admin: 06/10/16 08:25 Dose: 20 mg Ceftriaxone Sodium 1 gm/ (Dextrose) 50 mls @ 100 mls/hr IV DAILY [facility] Last Admin: 06/10/16 08:27 Dose: 100 mls/hr Vancomycin HCl 1,000 mg/ (Sodium Chloride) 250 mls @ 250 mls/hr IV Q12 [facility] Last Infusion: 06/10/16 06:59 Dose: Infused Clindamycin Phosphate 600 mg/ (Dextrose) 54 mls @ 100 mls/hr IV Q8H [facility] Iron Carb/Multivit/Frit Coater/Folic Acid (Multivitamin W/Minerals) 1 tab PO DAILY [facility] Last Admin: 06/10/16 08:31 Dose: 1 tab Lorazepam (Ativan) 0.5 mg IV Q2HP PRN PRN Reason: ANXIETY/SEDATION Last Admin: 06/08/16 23:27 Dose: 0.5 mg Magnesium Hydroxide (Milk Of Magnesia) 30 ml PO DAILYP PRN PRN Reason: Constipation Last Admin: 06/08/16 11:42 Dose: 30 ml Methylprednisolone Sodium Succinate (Solu-Medrol) 40 mg IV DAILY [facility] Metoprolol Tartrate (Lopressor) 5 mg IV Q4HP PRN PRN Reason: Tachyarrhythmias Last Admin: 06/06/16 09:45 Dose: 5 mg Morphine Sulfate (Morphine) 1 mg IV Q2HP PRN PRN Reason: Pain Naloxone HCl (Narcan) 0.1 mg IV Q2MIN PRN PRN Reason: Opiate Reversal Last Admin: 06/05/16 00:03 Dose: 0.1 mg Ondansetron HCl (Zofran) 4 mg IV Q4-6HP PRN PRN Reason: Nausea And Vomiting Pantoprazole Sodium (Protonix) 40 mg IV QAMAC [facility] Last Admin: 06/10/16 06:58 Dose: 40 mg Artificial Tears 2 dose BOTH EYES Q4HP PRN PRN Reason: Dry Eyes Melatonin [Melatonin (] 5 Mg Tablet) 1 dose PO HSP PRN PRN Reason: Insomnia Polyethylene Glycol (Miralax) 17 gm PO BID [facility] Last Admin: 06/10/16 08:25 Dose: 17 gm Potassium Chloride (Kdur) 10 meq PO QAC [facility] Last Admin: 06/10/16 08:25 Dose: 10 meq Potassium/Phosphorus/Sodium (Neutra Phos) 1 packet PO BID [facility] Last Admin: 06/10/16 08:25 Dose: 1 packet Senna (Senokot) 1 tab PO BID [facility] Last Admin: 06/10/16 09:09 Dose: 1 tab Sodium Chloride (Saline Flush) 10 ml IV Q8 [facility] Last Admin: 06/10/16 06:58 Dose: 10 ml Tamsulosin HCl (Flomax) 0.4 mg PO DAILY [facility] Last Admin: 06/10/16 08:31 Dose: 0.4 mg Vitamin D (Vitamin D3) 2,000 unit PO HS [facility] Last Admin: 06/09/16 20:51 Dose: 2,000 unit Medical - PN: A/P - Time Spent With Patient Total time spent is greater than 50% in coordination of care (as documented) at patient's floor/unit and/or counseling patient: 25 - 35 minutes (1) COPD (chronic obstructive pulmonary disease) Status: Acute Assessment and plan: * Aspiration pneumonia-bibasal infiltrates on imaging. on antibiotic coverage. Add clindamycin for anaerobic coverage. Continue ST eval and diet per ST recommendations along with aspiration precautions * COPD exacerbation clinically improving. On noninvasive ventilation. Continue bronchodilators steroids. * atrial fibrillation-rate controlled -Coreg * anticoagulation CVA prophylaxis on Coumadin. INR therapeutic * hyperlipidemia * BPH on tamsulosin * Pain management as needed opioids plan * Continue antibiotic coverage * aspiration precautions * Previous to medical condition management as above * Continue noninvasive ventilation and wean as tolerated * blood gases and imaging * Continue ICU care Current Visit: Yes Medical - PN: Qual - VTE Deep Vein Thrombosis/Pulmonary Embolism Present on Admission: No
[2016-06-10] MEDS: VITAMIN D3 1,000 UNIT TABLET PO SCH (21:25)
[2016-06-11] MEDS: IPRATROPIUM/ALBUTEROL 3 ML AMPUL.NEB NEB SCH ×6 (00:55→19:32)
[2016-06-11] MEDS: 0.9 % SODIUM CHLORIDE 10 ML SYRINGE IV SCH ×3 (05:31→22:20)
[2016-06-11] MEDS: CLINDAMYCIN 600 MG in DEXTROSE 5% IN WATER 50 ML IV SCH ×3 (05:31→22:20)
[2016-06-11 06:34] LABS: Basophils # (Auto) 0 K/mcL (0.0-0.3); Basophils % (Auto) 0 % (0.0-2.0); Eosinophils # (Auto) 0 K/mcL (0.0-0.7); Eosinophils % (Auto) 0.2 % (0.0-7.0); Granulocytes % (Auto) 91.3 % (38.0-78.0); Lymphocytes # (Auto) 0.8 K/mcL (1.5-4.8); Lymphocytes % (Auto) 5.1 % (15.5-49.0); Mean Cell Volume 95.1 fL (80.0-100.0); Mean Corpuscular HGB Conc 32.4 g/dL (31.0-36.0); Mean Corpuscular Hemoglobin 30.8 pg (26.0-34.0); Monocytes # (Auto) 0.6 K/mcL (0.1-0.9); Monocytes % (Auto) 3.4 % (1.0-9.0); Platelet Count 218 K/mcL (140-440); RBC 4.34 M/mcL (4.50-5.90); Red Cell Distribution Width 13.2 % (11.5-14.5)
[2016-06-11 06:54] LABS: ALT/SGPT 25 U/l (0-40); Albumin 2.9 gm/dL (3.2-5.2); Albumin/Globulin Ratio 1.2 (1.0-2.3); Alkaline Phosphatase 52 U/L (39-117); Bilirubin,Direct < 0.2 mg/dL (0.0-0.3); Blood Urea Nitrogen 33 mg/dl (8-23); Gamma Glutamyl Transpeptidase 20 U/L (8-61); Magnesium 2.5 mg/dL (1.6-2.5); Phosphorous 3.7 mg/dL (2.7-4.5); Uric Acid 6.9 mg/dL (2.5-8.0)
[2016-06-11] MEDS: PANTOPRAZOLE 40 MG VIAL IV SCH (07:13)
[2016-06-11] MEDS: CARVEDILOL 3.125 MG TABLET PO SCH ×2 (07:14→17:54)
[2016-06-11] MEDS: POLYETHYLENE GLYCOL 3350 17 GM PACKET PO SCH ×2 (08:39→20:11)
[2016-06-11] MEDS: NEUTRA PHOS 1 PACKET PO SCH ×2 (08:39→20:07)
[2016-06-11] MEDS: methylPREDNISolone SOD SUCC 40 MG/ML VIAL IV SCH (08:39)
[2016-06-11] MEDS: TAMSULOSIN 0.4 MG CAPSULE PO SCH (08:39)
[2016-06-11] MEDS: CALCIUM CARBONATE 500 MG TAB.CHEW CHEWED SCH (08:40)
[2016-06-11] MEDS: FUROSEMIDE 20 MG/2 ML VIAL IV SCH ×2 (08:40→20:12)
[2016-06-11] MEDS: MULTIVIT,THER IRON,CA,FA & MIN 1 TABLET PO SCH (08:40)
[2016-06-11] MEDS: POTASSIUM CHLORIDE 10 MEQ TABLET PO SCH (08:40)
[2016-06-11] MEDS ORDERED: NICOTINE 21 MG PATCH TOPICAL SCH (09:00)
[2016-06-11] MEDS: cefTRIAXone 1 GM in DEXTROSE 5% IN WATER 50 ML IV SCH (09:56)
[2016-06-11] MEDS: SENNOSIDES 1 TABLET PO SCH ×2 (09:56→20:08)
[2016-06-11] MEDS: VANCOMYCIN 1,000 MG in 0.9 % SODIUM CHLORIDE 250 ML IV SCH (09:58)
--- NOTE | 2016-06-11 14:19 | Internal Med Progress Note ---
Medical - PN: Subj Patient information: Note initiated : 06/11/16 at 2:15 pm Service Date, if different from initiated Date: [] Patient: Shameka Sy 80 y/o M admitted on 06/04/16 for Shortness of Breath/ Pneumonia. Chief Complaint: [] Interval history: June 04, 2016: History of present illness: Mr. Sy is a 80 [facility] [place] [facility] today. He apparently developed rather sudden increase in shortness of breath yesterday morning, and had a chest x-ray suggestive of left lower lobe pneumonia. It looks like he was treated with azithromycin and Rocephin. However according to his sister, he continued to get more short of breath over the course of the day. He was sent to the emergency room for further evaluation. In the ER he initially had an O2 saturation of 90% on 10 L nasal cannula, and is now requiring about15 L nonrebreather mask to keep his saturations above 92%. His sister is here with him, and so she is his only family. She is aware that he had shortness of breath yesterday and believes he had fever and chills as well as productive cough. She does not believe that he has had recent headaches or dizziness, new eye or Or ear symptoms, sore throat, chest pain or palpitations, abdominal pain, nausea vomiting or diarrhea. She reports she does have chronic constipation. She is not aware of any bladder complaints. June 05, 2016: the patient did remain on BiPAP for the rest of the night and morning. ABG definitely looks better, although not normal, on the BiPAP. The patient is a little more responsive this morning. He does open his eyes,and appears to say yes and no in response to simple questions. his sister is here again this morning,and is rethinking her brother's CODE STATUS. He never did put anything in writing, so she is now thinking that is going on a ventilator for a few days might get him over whatever respiratory failure he's having at the moment then she would consider giving us the okay to do that. She reiterates that he and she never had a steven discussion about this issue. he patient seems indicated that he is not having any pain. He seems to deny chest pain or abdominal pain, and seems to understand that the BiPAP mask is helping him to breathe. May: this morning, the patient has quite a bit more awake. He is able to answer some questions. This afternoon he underwent a speech evaluation, and they feel he is safe to swallow some meds and a dysphagia 1 diet. he continues to have moderate dyspnea, but does admit that he feels he is getting better. He denies any significant pain, and specifically denies chest painor palpitations,abdominal pain, nausea or vomiting, diarrhea, dysuria. His sister came in again today, to fill out the CODE STATUS paperwork, and decided that while she does not want CPR, they would accept short-term ventilation if that would help him get over an episode of pneumonia or some other limited time diagnosis. June 07: this morning, the patient is looking much better. He is off of the BiPAP, and on oxygen by nasal cannula. He is sitting up in a chair, and says he is feeling much better. Nurses report he ate a very large breakfast.e was taken off his BiPAP mask this morning,and is currently on 3 L nasal cannula. Blood gas on that shows a fairly high pH, with continued elevated CO2 and low O2 , but he does seem to be improving. Otherwise, the patient says he is feeling much better. He denies subjective fever or chills, chest painor palpitations, abdominal pain, nausea or vomiting, diarrhea or constipation.. He does have a Hudson catheter in place, and we think that that might of been placed at the [place]. The patient could not recall, but nursing notes there suggested that it was placed because of bladder outlet obstruction. June 08: this morning, the patient again was taken off BiPAP and placed on oxygen by nasal cannula. He did get up to a chair and ate a large breakfast. He says he is definitely feeling better. However, by the time that I saw him this morning, he was starting to fatigue, and was clearly using accessory muscles to breathe, though he denied significant shortness of breath. He says he may be a little bit more short of breath than usual, but was not sure. He continues to have a cough that is mostly nonproductive. He otherwise denies subjective fever or chills, chest pain or palpitations, abdominal pain, nausea or vomiting. Nursing staff says he is not yet had a significant bowel movement, in spite of several bowel meds. Hudson catheter remains in place for bladder outlet obstruction. I did have a fairly long discussion with his sister/POA this morning about his progress and his overall status. June 09: the patient is awake and alert this morning. he is again sitting up in a chair, just had breakfast. He says he feels well. He certainly seems less dyspneic than yesterday. Later in the morning nurses got back into bed, and then he did become more dyspneic, and O2 saturations dropped again. Otherwise, he denies subjective fever or chills, chest pain or abdominal pain, nausea or vomiting, diarrhea or constipation. He continues with a Hudson catheter regarding his bladder outlet obstruction. 06/10- patient doing a lot better. No overnight events. On 2 L oxygen. No significant telemetry events. No concerns per nursing staff. on antibiotic coverage. Family at bedside. Updated daily status nd plan to transition out of ICU possible in 48 hours. Intermittently on BiPAP. Feels better since previous day 06/11- patient doing well. No overnight events. No concerns per staff. Clinically better and off BiPAP since night requiring intermittently. On 2.5 L oxygen. No telemetry events. Denies fever chills chest pain shortness of breath. Able to talk in full sentences. - Constitutional Vitals: Vital Signs Temp Pulse Resp BP Pulse Ox 98.6 F 84 18 123/69 92 06/11/16 12:00 06/11/16 13:35 06/11/16 13:35 06/11/16 12:00 06/11/16 12:00 Period Temp Pulse Resp BP Sys/Charles Pulse Ox Last 24 Hr 98.3 F-99.3 F 68-92 14-24 108-150/66-87 89-96 Intake and Output 06/11/16 06/11/16 06/11/16 05:59 13:59 21:59 Intake Total 458 / 458 400 / 400 Output Total 800 / 800 Balance -342 / -342 400 / 400 Weight 167 lb 9.6 oz Patient Weight 06/12/16 05:59 Weight 167 lb 9.6 oz Intake & Output: Intake & Output 06/11/16 06/11/16 06/11/16 05:59 13:59 21:59 Intake Total 458 / 458 400 / 400 Output Total 800 / 800 Balance -342 / -342 400 / 400 Weight 167 lb 9.6 oz Intake: IV 358 / 358 Dextrose 5% in Water 50 108 / 108 ml @ 100 mls/hr IV Q8H KIRA with Cleocin 600 mg Rx#:[id number] Sodium Chloride 0.9% 250 250 / 250 ml @ 250 mls/hr IV Q12 KIRA with Vancomycin 1,000 mg Rx#:[id number] Oral 100 / 100 400 / 400 Output: Urine Catheter Amount 800 / 800 Other: Meal Breakfast Percent of Meal Consumed 100% Feeding Ability Assist with Tray Set Up # Bowel Movements 1 General appearance: no acute distress Exam: intermittently on BiPAP Nonlabored breathing No anxiety nondistended abdomen No lymphedema Medical - PN: Obj Da - Labs CBC & Chem 7: 06/11/16 03:50 06/11/16 03:50 Labs: Abnormal Lab Results 06/11/16 06/11/16 06/11/16 08:55 03:50 03:50 WBC 16.1 H RBC 4.34 L Hgb 13.4 L Gran % 91.3 H Lymph % (Auto) 5.1 L Gran # 14.7 H Lymph # 0.8 L PT 32.9 H INR 3.1 H Chloride 90 L Carbon Dioxide 40 H BUN 33 H Glucose 111 H Calcium 8.1 L Phosphorus Total Protein 5.3 L Albumin 2.9 L Urine Occult Blood Urine RBC Amorphous Crystals 06/10/16 06/10/16 06/10/16 03:50 03:50 03:50 WBC 13.9 H RBC Hgb Gran % 94.2 H Lymph % (Auto) 4.1 L Gran # 13.1 H Lymph # 0.6 L PT 30.2 H INR 2.8 H Chloride 87 L Carbon Dioxide 44 H* BUN 34 H Glucose 143 H Calcium 8.4 L Phosphorus 4.6 H Total Protein 5.7 L Albumin 3.1 L Urine Occult Blood Urine RBC Amorphous Crystals 06/09/16 06/09/16 06/09/16 11:15 04:23 04:13 WBC 13.0 H RBC Hgb Gran % 90.8 H Lymph % (Auto) 5.8 L Gran # 11.8 H Lymph # 0.8 L PT INR Chloride 88 L Carbon Dioxide 39 H BUN 35 H Glucose 132 H Calcium 8.4 L Phosphorus Total Protein 5.6 L Albumin Urine Occult Blood 0.2 A Urine RBC 13 H Amorphous Crystals Many A 06/09/16 04:13 WBC RBC Hgb Gran % Lymph % (Auto) Gran # Lymph # PT 26.4 H INR 2.3 H Chloride Carbon Dioxide BUN Glucose Calcium Phosphorus Total Protein Albumin Urine Occult Blood Urine RBC Amorphous Crystals Meds: Medications Acetaminophen (Tylenol) 650 mg PO Q4-6HP PRN PRN Reason: PAIN/FEVER > 101 Last Admin: 06/11/16 07:13 Dose: 650 mg Albuterol Sulfate (Ventolin) 2.5 mg NEB Q2HP PRN PRN Reason: Shortness Of Breath Or Wheezing Last Admin: 06/07/16 15:15 Dose: 2.5 mg Albuterol/Ipratropium (Duoneb) 3 ml NEB Q6HRT [facility] Last Admin: 06/11/16 13:34 Dose: 3 ml Albuterol/Ipratropium (Duoneb) 3 ml NEB Q6H [facility] Last Admin: 06/11/16 05:34 Dose: Not Given Bisacodyl (Dulcolax) 10 mg NC PRN PRN PRN Reason: Constipation Last Admin: 06/07/16 15:28 Dose: 10 mg Calcium Carbonate/Glycine (Tums) 500 mg CHEWED DAILY [facility] Last Admin: 06/11/16 08:40 Dose: 500 mg Carvedil[facility] (Coreg) [facility] Last Admin: 06/11/16 07:14 Dose: 3.125 mg Docusate Sodium (Colace) 100 mg PO BID PRN PRN Reason: Constipation Last Admin: 06/10/16 08:26 Dose: 100 mg Furosemide (Lasix) 20 mg IV Q12 [facility] Last Admin: 06/11/16 08:40 Dose: 20 mg Ceftriaxone Sodium 1 gm/ (Dextrose) 50 mls @ 100 mls/hr IV DAILY [facility] Last Admin: 06/11/16 09:56 Dose: 100 mls/hr Clindamycin Phosphate 600 mg/ (Dextrose) 54 mls @ 100 mls/hr IV Q8H [facility] Last Infusion: 06/11/16 05:57 Dose: Infused Iron Carb/Multivit/Schuyler/Folic Acid (Multivitamin W/Minerals) 1 tab PO DAILY [facility] Last Admin: 06/11/16 08:40 Dose: 1 tab Lorazepam (Ativan) 0.5 mg IV Q2HP PRN PRN Reason: ANXIETY/SEDATION Last Admin: 06/08/16 23:27 Dose: 0.5 mg Magnesium Hydroxide (Milk Of Magnesia) 30 ml PO DAILYP PRN PRN Reason: Constipation Last Admin: 06/08/16 11:42 Dose: 30 ml Methylprednisolone Sodium Succinate (Solu-Medrol) 40 mg IV DAILY [facility] Last Admin: 06/11/16 08:39 Dose: 40 mg Metoprolol Tartrate (Lopressor) 5 mg IV Q4HP PRN PRN Reason: Tachyarrhythmias Last Admin: 06/06/16 09:45 Dose: 5 mg Morphine Sulfate (Morphine) 1 mg IV Q2HP PRN PRN Reason: Pain Naloxone HCl (Narcan) 0.1 mg IV Q2MIN PRN PRN Reason: Opiate Reversal Last Admin: 06/05/16 00:03 Dose: 0.1 mg Nicotine (Nicoderm) 21 mg TOPICAL DAILY [facility] Last Admin: 06/11/16 09:56 Dose: Not Given Ondansetron HCl (Zofran) 4 mg IV Q4-6HP PRN PRN Reason: Nausea And Vomiting Pantoprazole Sodium (Protonix) 40 mg IV QAMAC [facility] Last Admin: 06/11/16 07:13 Dose: 40 mg Artificial Tears 2 dose BOTH EYES Q4HP PRN PRN Reason: Dry Eyes Melatonin [Melatonin (] 5 Mg Tablet) 1 dose PO HSP PRN PRN Reason: Insomnia Polyethylene Glycol (Miralax) 17 gm PO BID [facility] Last Admin: 06/11/16 08:39 Dose: 17 gm Potassium Chlor[facility] (K[facility]ur) [facility] Last Admin: 06/11/16 08:40 Dose: 10 meq Potassium/Phosphorus/Sodium (Neutra Phos) 1 packet PO BID [facility] Last Admin: 06/11/16 08:39 Dose: 1 packet Senna (Senokot) 1 tab PO BID [facility] Last Admin: 06/11/16 09:56 Dose: Not Given Sodium Chloride (Saline Flush) 10 ml IV Q8 [facility] Last Admin: 06/11/16 08:39 Dose: 10 ml Tamsulosin HCl (Flomax) 0.4 mg PO DAILY [facility] Last Admin: 06/11/16 08:39 Dose: 0.4 mg Vitamin D (Vitamin D3) 2,000 unit PO HS [facility] Last Admin: 06/10/16 21:25 Dose: 2,000 unit Medical - PN: A/P - Time Spent With Patient Total time spent is greater than 50% in coordination of care (as documented) at patient's floor/unit and/or counseling patient: 25 - 35 minutes (1) COPD (chronic obstructive pulmonary disease) Status: Acute Assessment and plan: * Aspiration pneumonia-bibasal infiltrates on imaging. Continue antibiotic coverage. Continue ST eval and diet per ST recommendations along with aspiration precautions * COPD exacerbation clinically improving. On intermittent noninvasive ventilation. Continue bronchodilators steroids. * Atrial fibrillation-rate controlled -Coreg * Anticoagulation CVA prophylaxis on Coumadin. INR therapeutic * hyperlipidemia * BPH on tamsulosin * Pain management as needed opioids plan * Continue antibiotic coverage * wean noninvasive ventilation * pre-existing medical condition management as above * transfer to telemetry once off noninvasive ventilation Current Visit: Yes Medical - PN: Qual - VTE Deep Vein Thrombosis/Pulmonary Embolism Present on Admission: No
[2016-06-11] MEDS ORDERED: ACETAMINOPHEN 325 MG TABLET PO PRN (16:39)
[2016-06-11] MEDS ORDERED: ALBUTEROL SULFATE 2.5 MG/3 ML NEBULIZER NEB PRN (16:39)
[2016-06-11] MEDS ORDERED: DOCUSATE SODIUM 100 MG CAPSULE PO PRN (16:39)
[2016-06-11] MEDS ORDERED: MAGNESIUM HYDROXIDE 30 ML ORAL.SUSP PO PRN (16:39)
[2016-06-11] MEDS ORDERED: NALOXONE HCL 0.4 MG/ML VIAL IV PRN (16:39)
[2016-06-11] MEDS ORDERED: VANCOMYCIN PER PHARMACY IV ONE (16:39)
[2016-06-11] MEDS ORDERED: METOPROLOL TARTRATE 5 MG/5 ML VIAL IV PRN (16:39)
[2016-06-11] MEDS ORDERED: ONDANSETRON 4 MG/2 ML VIAL IV PRN (16:39)
[2016-06-11] MEDS ORDERED: BISACODYL 10 MG SUPP.RECT PR PRN (16:39)
[2016-06-11] MEDS ORDERED: Melatonin [Melatonin] 5 MG Tablet PO PRN (16:39)
[2016-06-11] MEDS ORDERED: LORazepam 2 MG/ML VIAL IV PRN (16:39)
[2016-06-11] MEDS ORDERED: IPRATROPIUM/ALBUTEROL 3 ML AMPUL.NEB NEB SCH (18:00)
[2016-06-11] MEDS: VITAMIN D3 1,000 UNIT TABLET PO SCH (20:08)
[2016-06-12] MEDS: IPRATROPIUM/ALBUTEROL 3 ML AMPUL.NEB NEB SCH ×5 (02:00→19:25)
[2016-06-12] MEDS: CLINDAMYCIN 600 MG in DEXTROSE 5% IN WATER 50 ML IV SCH ×3 (05:49→23:00)
[2016-06-12] MEDS: 0.9 % SODIUM CHLORIDE 10 ML SYRINGE IV SCH ×4 (06:10→20:16)
[2016-06-12 06:24] LABS: Basophils # (Auto) 0 K/mcL (0.0-0.3); Basophils % (Auto) 0 % (0.0-2.0); Eosinophils # (Auto) 0.1 K/mcL (0.0-0.7); Eosinophils % (Auto) 0.9 % (0.0-7.0); Lymphocytes # (Auto) 1.2 K/mcL (1.5-4.8); Mean Cell Volume 95.6 fL (80.0-100.0); Mean Corpuscular HGB Conc 31.7 g/dL (31.0-36.0); Mean Corpuscular Hemoglobin 30.3 pg (26.0-34.0); Monocytes # (Auto) 0.8 K/mcL (0.1-0.9); Monocytes % (Auto) 6.1 % (1.0-9.0); Platelet Count 248 K/mcL (140-440); RBC 4.51 M/mcL (4.50-5.90); Red Cell Distribution Width 13.4 % (11.5-14.5)
[2016-06-12 06:39] LABS: ALT/SGPT 28 U/l (0-40); Albumin 3.4 gm/dL (3.2-5.2); Albumin/Globulin Ratio 1.4 (1.0-2.3); Alkaline Phosphatase 54 U/L (39-117); Bilirubin,Direct < 0.2 mg/dL (0.0-0.3); Blood Urea Nitrogen 30 mg/dl (8-23); Gamma Glutamyl Transpeptidase 22 U/L (8-61); Magnesium 2.6 mg/dL (1.6-2.5); Phosphorous 4.1 mg/dL (2.7-4.5); Uric Acid 6.5 mg/dL (2.5-8.0)
[2016-06-12] MEDS: PANTOPRAZOLE 40 MG VIAL IV SCH (07:54)
[2016-06-12] MEDS ORDERED: cefTRIAXone 1 GM in DEXTROSE 5% IN WATER 50 ML IV SCH (09:00)
[2016-06-12] MEDS ORDERED: methylPREDNISolone SOD SUCC 40 MG/ML VIAL IV SCH (09:00)
[2016-06-12] MEDS ORDERED: predniSONE 20 MG TABLET PO ONE (12:04)
--- NOTE | 2016-06-12 12:07 | Internal Med Progress Note ---
Medical - PN: Subj Patient information: Note initiated : 06/12/16 at 12:02 pm Service Date, if different from initiated Date: [] Patient: Shameka Sy 80 y/o M admitted on 06/04/16 for Shortness of Breath/ Pneumonia. Chief Complaint: [] Interval history: June 04, 2016: History of present illness: Mr. yS is a 80 [facility]. He apparently developed rather sudden increase in shortness of breath yesterday morning, and had a chest x-ray suggestive of left lower lobe pneumonia. It looks like he was treated with azithromycin and Rocephin. However according to his sister, he continued to get more short of breath over the course of the day. He was sent to the emergency room for further evaluation. In the ER he initially had an O2 saturation of 90% on 10 L nasal cannula, and is now requiring about15 L nonrebreather mask to keep his saturations above 92%. His sister is here with him, and so she is his only family. She is aware that he had shortness of breath yesterday and believes he had fever and chills as well as productive cough. She does not believe that he has had recent headaches or dizziness, new eye or Or ear symptoms, sore throat, chest pain or palpitations, abdominal pain, nausea vomiting or diarrhea. She reports she does have chronic constipation. She is not aware of any bladder complaints. June 05, 2016: the patient did remain on BiPAP for the rest of the night and morning. ABG definitely looks better, although not normal, on the BiPAP. The patient is a little more responsive this morning. He does open his eyes,and appears to say yes and no in response to simple questions. his sister is here again this morning,and is rethinking her brother's CODE STATUS. He never did put anything in writing, so she is now thinking that is going on a ventilator for a few days might get him over whatever respiratory failure he's having at the moment then she would consider giving us the okay to do that. She reiterates that he and she never had a steven discussion about this issue. he patient seems indicated that he is not having any pain. He seems to deny chest pain or abdominal pain, and seems to understand that the BiPAP mask is helping him to breathe. May: this morning, the patient has quite a bit more awake. He is able to answer some questions. This afternoon he underwent a speech evaluation, and they feel he is safe to swallow some meds and a dysphagia 1 diet. he continues to have moderate dyspnea, but does admit that he feels he is getting better. He denies any significant pain, and specifically denies chest painor palpitations,abdominal pain, nausea or vomiting, diarrhea, dysuria. His sister came in again today, to fill out the CODE STATUS paperwork, and decided that while she does not want CPR, they would accept short-term ventilation if that would help him get over an episode of pneumonia or some other limited time diagnosis. June 07: this morning, the patient is looking much better. He is off of the BiPAP, and on oxygen by nasal cannula. He is sitting up in a chair, and says he is feeling much better. Nurses report he ate a very large breakfast.e was taken off his BiPAP mask this morning,and is currently on 3 L nasal cannula. Blood gas on that shows a fairly high pH, with continued elevated CO2 and low O2 , but he does seem to be improving. Otherwise, the patient says he is feeling much better. He denies subjective fever or chills, chest painor palpitations, abdominal pain, nausea or vomiting, diarrhea or constipation.. He does have a Hudson catheter in place, and we think that that might of been placed at the [facility]. The patient could not recall, but nursing notes there suggested that it was placed because of bladder outlet obstruction. June 08: this morning, the patient again was taken off BiPAP and placed on oxygen by nasal cannula. He did get up to a chair and ate a large breakfast. He says he is definitely feeling better. However, by the time that I saw him this morning, he was starting to fatigue, and was clearly using accessory muscles to breathe, though he denied significant shortness of breath. He says he may be a little bit more short of breath than usual, but was not sure. He continues to have a cough that is mostly nonproductive. He otherwise denies subjective fever or chills, chest pain or palpitations, abdominal pain, nausea or vomiting. Nursing staff says he is not yet had a significant bowel movement, in spite of several bowel meds. Hudson catheter remains in place for bladder outlet obstruction. I did have a fairly long discussion with his sister/POA this morning about his progress and his overall status. June 09: the patient is awake and alert this morning. he is again sitting up in a chair, just had breakfast. He says he feels well. He certainly seems less dyspneic than yesterday. Later in the morning nurses got back into bed, and then he did become more dyspneic, and O2 saturations dropped again. Otherwise, he denies subjective fever or chills, chest pain or abdominal pain, nausea or vomiting, diarrhea or constipation. He continues with a Hudson catheter regarding his bladder outlet obstruction. 06/10- patient doing a lot better. No overnight events. On 2 L oxygen. No significant telemetry events. No concerns per nursing staff. on antibiotic coverage. Family at bedside. Updated daily status nd plan to transition out of ICU possible in 48 hours. Intermittently on BiPAP. Feels better since previous day 06/11- patient doing well. No overnight events. No concerns per staff. Clinically better and off BiPAP since night requiring intermittently. On 2.5 L oxygen. No telemetry events. Denies fever chills chest pain shortness of breath. Able to talk in full sentences. 06/12- patient remarkably better. Off noninvasive ventilation. Anticipate discharge if continues to improve clinically. Advanced COPD with CO2 retention. transition to oral steroids. status post 7 days antibiotics. discontinue antibiotics in a.m. Anticipate SNF transfer to [place] in a.m. - Constitutional Vitals: Vital Signs Temp Pulse Resp BP Pulse Ox 98.6 F 67 20 100/72 92 06/12/16 11:00 06/12/16 11:00 06/12/16 11:00 06/12/16 11:00 06/12/16 11:00 Period Temp Pulse Resp BP Sys/Charles Pulse Ox Last 24 Hr 97.6 F-98.8 F 67-96 18-26 100-139/72-98 90-96 Intake and Output 06/11/16 06/12/16 06/12/16 21:59 05:59 13:59 Intake Total 544 / 544 54 / 54 54 / 54 Output Total 675 / 675 1300 / 1300 Balance -131 / -131 -1246 / -1246 54 / 54 Weight 178 lb 177 lb Patient Weight 06/13/16 05:59 Weight 177 lb Intake & Output: Intake & Output 06/11/16 06/12/16 06/12/16 21:59 05:59 13:59 Intake Total 544 / 544 54 / 54 54 / 54 Output Total 675 / 675 1300 / 1300 Balance -131 / -131 -1246 / -1246 54 / 54 Weight 178 lb 177 lb Intake: IV 104 / 104 54 / 54 54 / 54 Dextrose 5% in Water 50 54 / 54 54 / 54 54 / 54 ml @ 100 mls/hr IV Q8H KIRA with Cleocin 600 mg Rx#:[id number] Dextrose 5% in Water 50 50 / 50 ml @ 100 mls/hr IV DAILY KIRA with Rocephin 1 gm Rx #:[id number] Oral 440 / 440 0 / 0 Output: Urine Catheter Amount 675 / 675 1300 / 1300 Other: Meal Dinner Percent of Meal Consumed 50% Feeding Ability Needs Supervision General appearance: cooperative, no acute distress Exam: alert oriented Minimally labored breathing no anxiety no Lymphedema Medical - PN: Obj Da - Labs CBC & Chem 7: 06/12/16 03:35 06/12/16 03:35 Labs: Abnormal Lab Results 06/12/16 06/12/16 06/12/16 03:35 03:35 03:35 WBC 13.7 H RBC Hgb Gran % 84.0 H Lymph % (Auto) 9.0 L Gran # 11.5 H Lymph # 1.2 L PT 31.5 H INR 2.9 H Chloride 90 L Carbon Dioxide 44 H* Anion Gap 4.0 L BUN 30 H Glucose Calcium 8.3 L Phosphorus Magnesium 2.6 H Total Protein 5.8 L Albumin Urine Occult Blood Urine RBC Amorphous Crystals 06/11/16 06/11/16 06/11/16 08:55 03:50 03:50 WBC 16.1 H RBC 4.34 L Hgb 13.4 L Gran % 91.3 H Lymph % (Auto) 5.1 L Gran # 14.7 H Lymph # 0.8 L PT 32.9 H INR 3.1 H Chloride 90 L Carbon Dioxide 40 H Anion Gap BUN 33 H Glucose 111 H Calcium 8.1 L Phosphorus Magnesium Total Protein 5.3 L Albumin 2.9 L Urine Occult Blood Urine RBC Amorphous Crystals 06/10/16 06/10/16 06/10/16 03:50 03:50 03:50 WBC 13.9 H RBC Hgb Gran % 94.2 H Lymph % (Auto) 4.1 L Gran # 13.1 H Lymph # 0.6 L PT 30.2 H INR 2.8 H Chloride 87 L Carbon Dioxide 44 H* Anion Gap BUN 34 H Glucose 143 H Calcium 8.4 L Phosphorus 4.6 H Magnesium Total Protein 5.7 L Albumin 3.1 L Urine Occult Blood Urine RBC Amorphous Crystals 06/09/16 11:15 WBC RBC Hgb Gran % Lymph % (Auto) Gran # Lymph # PT INR Chloride Carbon Dioxide Anion Gap BUN Glucose Calcium Phosphorus Magnesium Total Protein Albumin Urine Occult Blood 0.2 A Urine RBC 13 H Amorphous Crystals Many A Meds: Medications Acetaminophen (Tylenol) 650 mg PO Q4-6HP PRN PRN Reason: PAIN/FEVER > 101 Albuterol Sulfate (Ventolin) 2.5 mg NEB Q2HP PRN PRN Reason: Shortness Of Breath Or Wheezing Albuterol/Ipratropium (Duoneb) 3 ml NEB Q6HRT [facility] Last Admin: 06/12/16 07:27 Dose: 3 ml Bisacodyl (Dulcolax) 10 mg KS PRN PRN PRN Reason: Constipation Calcium Carbonate/Glycine (Tums) 500 mg CHEWED DAILY [facility] Carvedilol (Coreg) 3.125 mg PO BIDCC [facility] Last Admin: 06/11/16 17:54 Dose: 3.125 mg Docusate Sodium (Colace) 100 mg PO BID PRN PRN Reason: Constipation Furosemide (Lasix) 20 mg IV Q12 [facility] Last Admin: 06/11/16 20:12 Dose: 20 mg Clindamycin Phosphate 600 mg/ (Dextrose) 54 mls @ 100 mls/hr IV Q8H [facility] Last Infusion: 06/12/16 06:42 Dose: Infused Ceftriaxone Sodium 1 gm/ (Dextrose) 50 mls @ 100 mls/hr IV DAILY [facility] Iron Carb/Multivit/Humphreys/Folic Acid (Multivitamin W/Minerals) 1 tab PO DAILY [facility] Lorazepam (Ativan) 0.5 mg IV Q2HP PRN PRN Reason: ANXIETY/SEDATION Magnesium Hydroxide (Milk Of Magnesia) 30 ml PO DAILYP PRN PRN Reason: Constipation Methylprednisolone Sodium Succinate (Solu-Medrol) 40 mg IV DAILY [facility] Metoprolol Tartrate (Lopressor) 5 mg IV Q4HP PRN PRN Reason: Tachyarrhythmias Morphine Sulfate (Morphine) 1 mg IV Q2HP PRN PRN Reason: Pain Naloxone HCl (Narcan) 0.1 mg IV Q2MIN PRN PRN Reason: Opiate Reversal Nicotine (Nicoderm) 21 mg TOPICAL DAILY [facility] Ondansetron HCl (Zofran) 4 mg IV Q4-6HP PRN PRN Reason: Nausea And Vomiting Pantoprazole Sodium (Protonix) 40 mg IV QAMAC [facility] Last Admin: 06/12/16 07:54 Dose: 40 mg Artificial Tears 2 dose BOTH EYES Q4HP PRN PRN Reason: Dry Eyes Melatonin [Melatonin (] 5 Mg Tablet) 1 dose PO HSP PRN PRN Reason: Insomnia Polyethylene Glycol (Miralax) 17 gm PO BID [facility] Last Admin: 06/11/16 20:11 Dose: 17 gm [facility]assium [facility] Potassium/Phosphorus/Sodium (Neutra Phos) 1 packet PO BID [facility] Last Admin: 06/11/16 20:07 Dose: 1 packet Senna (Senokot) 1 tab PO BID [facility] Last Admin: 06/11/16 20:08 Dose: 1 tab Sodium Chloride (Saline Flush) 10 ml IV Q8 [facility] Last Admin: 06/12/16 06:10 Dose: 10 ml Tamsulosin HCl (Flomax) 0.4 mg PO DAILY [facility] Vitamin D (Vitamin D3) 2,000 unit PO HS [facility] Last Admin: 06/11/16 20:08 Dose: 2,000 unit Warfarin Sodium (Coumadin) 2 mg PO ONCE@1400 ONE Stop: 06/12/16 14:01 Medical - PN: A/P - Time Spent With Patient Total time spent is greater than 50% in coordination of care (as documented) at patient's floor/unit and/or counseling patient: 25 - 35 minutes (1) COPD (chronic obstructive pulmonary disease) Status: Acute Assessment and plan: * Aspiration pneumonia-bibasal infiltrates on imaging. Continue clindamycin, Dc rocephin/vanco. Continue ST eval and diet per ST recommendations * COPD exacerbation clinically improving. Off NIPPV. Oral steroids * Atrial fibrillation-rate controlled on Coreg * Anticoagulation CVA prophylaxis on Coumadin. INR therapeutic * BPH on tamsulosin * Pain management as needed opioids plan * Switch to oral Steroids * Dc rocephin * pre-existing medical condition management as above * Possible DC Am Current Visit: Yes Medical - PN: Qual - VTE Deep Vein Thrombosis/Pulmonary Embolism Present on Admission: No
[2016-06-12] MEDS: CARVEDILOL 3.125 MG TABLET PO SCH ×2 (12:25→18:15)
[2016-06-12] MEDS: CALCIUM CARBONATE 500 MG TAB.CHEW CHEWED SCH (12:26)
[2016-06-12] MEDS: methylPREDNISolone SOD SUCC 40 MG/ML VIAL IV SCH (12:26)
[2016-06-12] MEDS: TAMSULOSIN 0.4 MG CAPSULE PO SCH (12:26)
[2016-06-12] MEDS: FUROSEMIDE 20 MG/2 ML VIAL IV SCH ×2 (12:27→20:15)
[2016-06-12] MEDS: POTASSIUM CHLORIDE 10 MEQ TABLET PO SCH (12:27)
[2016-06-12] MEDS: POLYETHYLENE GLYCOL 3350 17 GM PACKET PO SCH ×2 (12:51→20:16)
[2016-06-12] MEDS: NEUTRA PHOS 1 PACKET PO SCH ×2 (12:52→20:16)
[2016-06-12] MEDS: MULTIVIT,THER IRON,CA,FA & MIN 1 TABLET PO SCH (12:52)
[2016-06-12] MEDS: SENNOSIDES 1 TABLET PO SCH ×2 (12:53→20:16)
[2016-06-12] MEDS ORDERED: WARFARIN 2 MG TABLET PO ONE (14:00)
[2016-06-12] MEDS: NICOTINE 21 MG PATCH TOPICAL SCH (18:15)
[2016-06-12] MEDS: VITAMIN D3 1,000 UNIT TABLET PO SCH (20:15)
[2016-06-13] MEDS: IPRATROPIUM/ALBUTEROL 3 ML AMPUL.NEB NEB SCH ×2 (00:30→07:22)
[2016-06-13] MEDS: CLINDAMYCIN 600 MG in DEXTROSE 5% IN WATER 50 ML IV SCH (05:37)
[2016-06-13] MEDS: 0.9 % SODIUM CHLORIDE 10 ML SYRINGE IV SCH (05:37)
[2016-06-13] MEDS: POTASSIUM CHLORIDE 10 MEQ TABLET PO SCH (07:40)
[2016-06-13] MEDS: CARVEDILOL 3.125 MG TABLET PO SCH (07:40)
[2016-06-13] MEDS: PANTOPRAZOLE 40 MG VIAL IV SCH (07:40)
[2016-06-13] MEDS ORDERED: predniSONE 20 MG TABLET PO SCH (08:00)
[2016-06-13] MEDS: TAMSULOSIN 0.4 MG CAPSULE PO SCH (08:46)
[2016-06-13] MEDS: NICOTINE 21 MG PATCH TOPICAL SCH (08:46)
[2016-06-13] MEDS: SENNOSIDES 1 TABLET PO SCH (08:46)
[2016-06-13] MEDS: POLYETHYLENE GLYCOL 3350 17 GM PACKET PO SCH (08:46)
[2016-06-13] MEDS: FUROSEMIDE 20 MG/2 ML VIAL IV SCH (08:46)
[2016-06-13] MEDS: MULTIVIT,THER IRON,CA,FA & MIN 1 TABLET PO SCH (08:46)
[2016-06-13] MEDS: CALCIUM CARBONATE 500 MG TAB.CHEW CHEWED SCH (08:46)
[2016-06-13] MEDS: NEUTRA PHOS 1 PACKET PO SCH (08:46)
--- NOTE | 2016-06-13 09:38 | Discharge Summary ---
Medical - DS: Prov Patient information: Note initiated : 06/13/16 at 9:35 am Service Date, if different from initiated Date: [] Patient: Shameka Sy 80 y/o M admitted on 06/04/16 for Shortness of Breath/ Pneumonia. Chief Complaint: [] Date of admission: 06/04/16 23:40 Discharge date: 06/13/16 Primary care physician: [f_Reg Prim Care Provider] Medical - DS: Meds - Discharge Medications Prescriptions: Clindamycin HCl [Cleocin] 300 mg PO Q8 #12 capsule predniSONE [Prednisone] 40 mg PO QAMCC #10 tablet Active and Home Medications: Home/discharge Medications Artificial Tears 2 gtt BOTH EYES Q4HP PRN 06/05/16 [History Confirmed 06/05/16 Last Taken 06/04/16 08:00] Cholecalciferol (Vitamin D3) [Vitamin D3] 2,000 unit PO HS 06/05/16 [History Confirmed 06/05/16 Last Taken 06/04/16 21:00] Melatonin 5 mg PO PRN PRN 06/05/16 [History Confirmed 06/05/16 Last Taken 21:00] Multivit,Th Iron,Other Min [Thera-M] 1 tab PO DAILY 06/05/16 [History Confirmed 06/05/16 Last Taken 06/04/16 08:00] Potassium Chloride [Klor-Con 10] 10 meq PO DAILY 06/05/16 [History Confirmed Last Taken 06/04/16 08:00] Tamsulosin HCl 0.4 mg PO DAILY 06/05/16 [History Confirmed 06/05/16 Last Taken 06/04/16 08:00] Thera-Gesic Plus Creme 1 unit DAILY 06/05/16 [History Confirmed 06/05/16 Last Taken 06/03/16 21:00] Torsemide [Demadex] 20 mg PO DAILY 06/05/16 [History Confirmed 06/05/16 Last Taken 06/04/16 08:00] Warfarin [Coumadin] 6 mg PO DAILY 06/05/16 [History Confirmed 06/05/16 Last Taken 06/03/16 14:00] Acetaminophen [Tylenol] 650 mg PO Q4-6HP PRN #0 tablet 06/13/16 [Rx Last Taken Unknown] Clindamycin HCl [Cleocin] 300 mg PO Q8 #12 capsule 06/13/16 [Rx Last Taken Unknown] predniSONE [Prednisone] 40 mg PO [facility] #10 tablet 06/13/16 [Rx Last Taken Unknown] Medical - DS: Hosp Hospital course: DISCHARGE DIAGNOSIS * Hypoxic hypercapnic respiratory failure-well initially managed on noninvasive ventilation for first 96 hours and subsequently weaned off. * Aspiration pneumonia-bilateral basilar infiltrates on imaging. Continue clindamycin additional 4 days. aspiration precautions/dysphagia diet/ST eval/ treatments at SNF * COPD exacerbation resolved. Off NIPPV. continue steroids and bronchodilators. * Atrial fibrillation-rate controlled on Coreg * Anticoagulation CVA prophylaxis on Coumadin. INR therapeutic * BPH on tamsulosin * Pain management as needed opioids BRIEF HOSPITAL COURSE June 04, 2016: History of present illness: Mr. Sy is a 80 year old male [facility] emergency room from the [facility] today. He apparently developed rather sudden increase in shortness of breath yesterday morning, and had a chest x-ray suggestive of left lower lobe pneumonia. It looks like he was treated with azithromycin and Rocephin. However according to his sister, he continued to get more short of breath over the course of the day. He was sent to the emergency room for further evaluation. In the ER he initially had an O2 saturation of 90% on 10 L nasal cannula, and is now requiring about15 L nonrebreather mask to keep his saturations above 92%. His sister is here with him, and so she is his only family. She is aware that he had shortness of breath yesterday and believes he had fever and chills as well as productive cough. She does not believe that he has had recent headaches or dizziness, new eye or Or ear symptoms, sore throat, chest pain or palpitations, abdominal pain, nausea vomiting or diarrhea. She reports she does have chronic constipation. She is not aware of any bladder complaints. June 05, 2016: the patient did remain on BiPAP for the rest of the night and morning. ABG definitely looks better, although not normal, on the BiPAP. The patient is a little more responsive this morning. He does open his eyes,and appears to say yes and no in response to simple questions. his sister is here again this morning,and is rethinking her brother's CODE STATUS. He never did put anything in writing, so she is now thinking that is going on a ventilator for a few days might get him over whatever respiratory failure he's having at the moment then she would consider giving us the okay to do that. She reiterates that he and she never had a steven discussion about this issue. he patient seems indicated that he is not having any pain. He seems to deny chest pain or abdominal pain, and seems to understand that the BiPAP mask is helping him to breathe. May: this morning, the patient has quite a bit more awake. He is able to answer some questions. This afternoon he underwent a speech evaluation, and they feel he is safe to swallow some meds and a dysphagia 1 diet. he continues to have moderate dyspnea, but does admit that he feels he is getting better. He denies any significant pain, and specifically denies chest painor palpitations,abdominal pain, nausea or vomiting, diarrhea, dysuria. His sister came in again today, to fill out the CODE STATUS paperwork, and decided that while she does not want CPR, they would accept short-term ventilation if that would help him get over an episode of pneumonia or some other limited time diagnosis. June 07: this morning, the patient is looking much better. He is off of the BiPAP, and on oxygen by nasal cannula. He is sitting up in a chair, and says he is feeling much better. Nurses report he ate a very large breakfast.e was taken off his BiPAP mask this morning,and is currently on 3 L nasal cannula. Blood gas on that shows a fairly high pH, with continued elevated CO2 and low O2 , but he does seem to be improving. Otherwise, the patient says he is feeling much better. He denies subjective fever or chills, chest painor palpitations, abdominal pain, nausea or vomiting, diarrhea or constipation.. He does have a Hudson catheter in place, and we think that that might of been placed at the [place]. The patient could not recall, but nursing notes there suggested that it was placed because of bladder outlet obstruction. June 08: this morning, the patient again was taken off BiPAP and placed on oxygen by nasal cannula. He did get up to a chair and ate a large breakfast. He says he is definitely feeling better. However, by the time that I saw him this morning, he was starting to fatigue, and was clearly using accessory muscles to breathe, though he denied significant shortness of breath. He says he may be a little bit more short of breath than usual, but was not sure. He continues to have a cough that is mostly nonproductive. He otherwise denies subjective fever or chills, chest pain or palpitations, abdominal pain, nausea or vomiting. Nursing staff says he is not yet had a significant bowel movement, in spite of several bowel meds. Hudson catheter remains in place for bladder outlet obstruction. I did have a fairly long discussion with his sister/POA this morning about his progress and his overall status. June 09: the patient is awake and alert this morning. he is again sitting up in a chair, just had breakfast. He says he feels well. He certainly seems less dyspneic than yesterday. Later in the morning nurses got back into bed, and then he did become more dyspneic, and O2 saturations dropped again. Otherwise, he denies subjective fever or chills, chest pain or abdominal pain, nausea or vomiting, diarrhea or constipation. He continues with a Hudson catheter regarding his bladder outlet obstruction. 06/10- patient doing a lot better. No overnight events. On 2 L oxygen. No significant telemetry events. No concerns per nursing staff. on antibiotic coverage. Family at bedside. Updated daily status nd plan to transition out of ICU possible in 48 hours. Intermittently on BiPAP. Feels better since previous day 06/11- patient doing well. No overnight events. No concerns per staff. Clinically better and off BiPAP since night requiring intermittently. On 2.5 L oxygen. No telemetry events. Denies fever chills chest pain shortness of breath. Able to talk in full sentences. 06/12- patient remarkably better. Off noninvasive ventilation. Anticipate discharge if continues to improve clinically. Advanced COPD with CO2 retention. transition to oral steroids. status post 7 days antibiotics. discontinue antibiotics in a.m. Anticipate SNF transfer to [place] in a.m. /- patient did well overnight. Discharging on additional 4 days oral clindamycin to SNF with continued physical therapy orthopedist therapy and diet as per ST recommendations. Patient needs to take precautions for aspiration due to high risk. Detailed discharge instructions as below. Continue steroids for additional IV days. Use as needed bronchodilators. Discharge diagnosis: hypoxic hypercapnic respiratory failure - Time Spent with Patient Total time spent providing and/or coordinating discharge services: Medical - DS: Exam - Constitutional Vitals: Vital Signs Temp Pulse Pulse Pulse Resp BP Pulse Ox 06/13/16 07:31 98.9 F 84 22 112/64 91 06/13/16 07:23 92 H 89 L 06/13/16 07:00 98.9 F 84 06/13/16 04:23 97 H 06/13/16 04:00 98.2 F 91 H 20 114/81 92 06/13/16 03:30 96 H 06/12/16 23:30 98.1 F 96 H 18 110/78 91 06/12/16 21:46 87 06/12/16 20:00 98.0 F 112 H 20 109/62 92 06/12/16 19:50 88 20 92 06/12/16 19:25 80 22 06/12/16 16:00 98.9 F 78 22 108/71 91 06/12/16 14:48 93 06/12/16 13:55 80 18 06/12/16 11:00 98.6 F 67 20 100/72 92 Intake and Output 06/12/16 06/13/16 06/13/16 21:59 05:59 13:59 Intake Total 714 / 714 174 / 174 54 / 54 Output Total 550 / 550 800 / 800 Balance 164 / 164 -626 / -626 54 / 54 Intake: IV 54 / 54 54 / 54 54 / 54 Dextrose 5% in Water 50 54 / 54 54 / 54 54 / 54 ml @ 100 mls/hr IV Q8H KIRA with Cleocin 600 mg Rx#:[id number] Oral 660 / 660 120 / 120 Output: Urine Catheter Amount 550 / 550 800 / 800 Other: Meal Dinner Percent of Meal Consumed 50% # Bowel Movements 1 Weight 169 lb 8 oz Medical - DS: Data Labs on day of discharge: Labs from last 24 hours 06/13/16 04:00 PT 31.4 H INR 2.9 H Medical - DS: A/P - Patient/Caregiver Discharge Instructions Activity: as per physical therapy Diet: Regular Diet (aspirin ST recommendations-follow specific instructions) Additional Instructions: Follow-up PCP in 5 days I recommend SNF physician to check INR, CBC BMP UA as a posthospital follow-up and Chest x-ray in 1 week. Antibiotics for additional 4 days continue steroids for additional 5 days oxygen as needed to keep sats around 88-90% Continue aggressive bowel regimen to prevent constipation Continue fall precautions Continue aggressive PT OT along with speech therapy eval and treatment at SNF All meals on chair sitting upright at 90 degrees to prevent aspiration Return to ER if worsening fever chills shortness of breath, diarrhea, bleeding Review risk and side effect profile of medications including antibiotics. Side effect may include mild to severe reaction including rash, diarrhea, cdiff and even which can be prevented by close follow-up with PCP Refrain from smoking and alcohol dysphagia chopped diet as per ST recommendations continue activity as advised Discussed importance of medication adherence Please review medication list with patient prior to discharge Please schedule follow-up with PCP/Providers prior to discharge and provide printouts Portions of this chart may have been created with [employer] voice recognition software. Occasional wrong-word or ?sound-like? substitutions may have occurred due to the inherent limitations of voice recognition software. Please read the chart carefully and recognize, using context, where the substitutions have occurred. CC- PCP Prescriptions: Clindamycin HCl [Cleocin] 300 mg PO Q8 #12 capsule predniSONE [Prednisone] 40 mg PO [facility] #10 tablet - Follow up Plan Follow up with: Shanita Sweet PA-C [Primary Care Provider] - Disposition: er SNF Prognosis: Fair Rehab Potential: Undetermined I certify that the patient requires SNF services: Yes Overall status at discharge: patient is progressing back to baseline Medical - DS: Qual - VTE Deep Vein Thrombosis/Pulmonary Embolism Present on Admission: No
[2016-06-13] MEDS ORDERED: WARFARIN 2 MG TABLET PO ONE (14:00)
== END 2016-06-13 11:40 | DRG 189 ==
LOC: ED 19:33 → ICU 23:40
PROVIDERS: ADMIT Internal Medicine; ATTEND Internal Medicine